=== PATIENT | male | born 1965 | race Caucasian/White ===

== ENCOUNTER 2022-01-06 11:49 | Inpatient (IN) | payer OTHER ==
[~2022-01-06] VITALS: Ht 193 cm; Wt 109.8 kg
--- NOTE | 2022-01-06 12:00 | NUR ---
BLOOD DRAWN AND SENT TO LAB
--- NOTE | 2022-01-06 12:00 | NUR ---
BIBA RA60 From [facility] Covid + x1wk/SOB/Low O2 at 85% this am. PLACED ON BED, AAOX4, UNLABORED BREATHING, ON NON-REABREATHING MASK AT 15LIT SATURATING AT 99%.
[2022-01-06 12:21] LABS: BASOPHILS % (AUTO) 0.3 % (0.0-2.0); EOSINOPHILS % (AUTO) 2.5 % (0.0-6.0); HEMATOCRIT 34 % (39-51); HEMOGLOBIN 11.3 g/dL (13.5-17.5); LYMPHOCYTES # (AUTO) 0.3 K/uL (0.8-4.8); LYMPHOCYTES % (AUTO) 5.6 % (20.0-44.0); MEAN CORPUSCULAR HGB CONC 33 g/dl (31.0-36.0); MEAN CORPUSCULAR VOLUME 94 fL (80-96); MONOCYTES # (AUTO) 0.3 K/uL (0.1-1.30); MONOCYTES % (AUTO) 5.1 % (2.0-12.0); NEUTROPHILS # (AUTO) 4.8 K/uL (1.8-8.9); NEUTROPHILS % (AUTO) 86.5 % (43.0-81.0); PLATELET COUNT (AUTO) 128 K/uL (150-450); RED BLOOD CELL COUNT(AUTO) 3.64 MIL/uL (4.5-6.0); WHITE BLOOD COUNT (AUTO) 5.5 K/uL (4.3-11.0)
--- NOTE | 2022-01-06 12:30 | NUR ---
MOVE SHEET SUBMITTED.
--- NOTE | 2022-01-06 12:45 | NUR ---
SWAB FOR COVID19 SENT TO LAB
[2022-01-06 12:49] LABS: ALANINE AMINOTRANSFERASE 23 U/L (12-78); ALBUMIN 2.2 g/dL (3.4-5.0); ALKALINE PHOSPHATASE 118 U/L (46-116); ASPARTATE AMINOTRANSFERASE 29 U/L (15-37); BILIRUBIN,DIRECT 0.5 mg/dL (0.0-0.2); BILIRUBIN,TOTAL 1.4 mg/dL (0.2-1.0); CALCIUM, SERUM 8.7 mg/dL (8.5-10.1); CARBON DIOXIDE 37 mmol/L (21-32); CHLORIDE 102 mmol/L (98-107); CREATININE 0.7 mg/dL (0.6-1.3); GLUCOSE 245 mg/dL (74-106); POTASSIUM 3.4 mmol/L (3.5-5.1); SODIUM SERUM 141 mmol/L (136-145); TOTAL PROTEIN, SERUM 7.1 g/dL (6.4-8.2); UREA NITROGEN, BLOOD 16 mg/dL (7-18)
[2022-01-06] MEDS ORDERED: OMEP40CA21 PO (12:49)
[2022-01-06] MEDS ORDERED: FERR325T23 PO (12:49)
[2022-01-06] MEDS ORDERED: HONE15GE TP (12:49)
[2022-01-06] MEDS ORDERED: POTA10TA PO (12:49)
[2022-01-06] MEDS ORDERED: ACET-868 PO (12:49)
[2022-01-06] MEDS ORDERED: AMIN30LI2 PO (12:49)
[2022-01-06] MEDS ORDERED: INSU100V7 SQ (12:49)
[2022-01-06] MEDS ORDERED: HYDR-4209 PO (12:49)
[2022-01-06] MEDS ORDERED: ACET-2605 PO (12:49)
[2022-01-06] MEDS ORDERED: DICY20TA11 PO (12:49)
[2022-01-06] MEDS ORDERED: INSU100V27 SQ (12:49)
[2022-01-06] MEDS ORDERED: HYDR-4075 PO (12:49)
[2022-01-06] MEDS ORDERED: IPRA3AMP23 IH (12:49)
[2022-01-06] MEDS ORDERED: BLOO-668 IN (12:49)
[2022-01-06] MEDS ORDERED: FURO-144 PO (12:49)
[2022-01-06] MEDS ORDERED: ASPI-869 PO (12:49)
[2022-01-06] MEDS ORDERED: MULT-594 PO (12:49)
[2022-01-06] MEDS ORDERED: DOCU-141 PO (12:49)
[2022-01-06] MEDS ORDERED: LACT10SO58 PO (12:49)
[2022-01-06] MEDS ORDERED: NITR0.4T48 SL (12:52)
[2022-01-06] MEDS ORDERED: ONDA4TAB5 PO (12:52)
[2022-01-06] MEDS ORDERED: MAGN400O6 PO (12:52)
[2022-01-06] MEDS ORDERED: FLUO20TA28 PO (12:52)
[2022-01-06] MEDS ORDERED: MIDO5TAB4 PO (12:52)
[2022-01-06] MEDS ORDERED: LORA-258 PO (12:52)
--- NOTE | 2022-01-06 13:04 | NUR ---
COVID TEST COLLECTED AND SENT
--- NOTE | 2022-01-06 13:17 | NUR ---
PANEL ON-CALL PAGED
[2022-01-06] MEDS ORDERED: ENOXAPARIN SODIUM 40 MG/0.4 ML DISP.SYRIN SQ SCH (15:30)
[2022-01-06] MEDS ORDERED: hydrALAZINE HCL 10 MG TABLET PO PRN (15:30)
[2022-01-06] MEDS ORDERED: ACETAMINOPHEN 325 MG TABLET PO PRN (15:30)
[2022-01-06] MEDS ORDERED: ONDANSETRON HCL/PF 4 MG/2 ML VIAL IVP PRN (15:30)
[2022-01-06] MEDS ORDERED: Z GUARD REMEDY 4 OZ OINT TP PRN (15:30)
[2022-01-06] MEDS ORDERED: NITROGLYCERIN 0.4 MG/TAB BOTTLE SL PRN (15:30)
[2022-01-06] MEDS ORDERED: MAG HYDROX/AL HYDROX/SIMETH 30 ML UDC PO PRN (15:30)
[2022-01-06] MEDS ORDERED: DEXTROSE 50%-WATER 50 ML DISP.SYRIN IV PRN (15:30)
[2022-01-06] MEDS ORDERED: DOCUSATE SODIUM 100 MG CAPSULE PO PRN (15:30)
[2022-01-06] MEDS ORDERED: ONDANSETRON 4 MG TAB.RAPDIS PO PRN (15:30)
[2022-01-06] MEDS ORDERED: MAGNESIUM HYDROXIDE 30 ML UDC PO PRN (15:30)
--- NOTE | 2022-01-06 15:33 | NUR ---
118 bed one - IGLESIA bed assigned
--- NOTE | 2022-01-06 15:37 | NUR ---
IGLESIA 118-2
--- NOTE | 2022-01-06 15:48 | NUR ---
REPORT GIVEN TO TEODORO CLEMENTE [id number] FOR ZAIRE
[2022-01-06] MEDS ORDERED: DICYCLOMINE HCL 10 MG CAPSULE PO PRN (16:00)
--- NOTE | 2022-01-06 18:00 | NUR ---
PAGE MAKEUP SYSTEM OPERATORPIPE BENDING MACHINE OPERATOR NOTE: RECEIVED PATIENT FROM ER VIA [facility] AT 1730. REPORT GIVEN BY ASSEMBLY OPERATOR, RAMANDEEP. PT. A/O X 2-3, KNOWS NAME, DATE, REASON FOR ADMISSION. BREATHING EVEN AND UNLABORED. ON O2 @ 8L/MIN VIA SIMPLE MASK, NO S/S OF RESPIRATORY DISTRESS. HEALTH EDUCATION TEACHER READS NSR AT 98 BPM. IV ACCESS ON L AND R AC #20G, INTACT AND PATENT, BOTH SALINE LOCKED. NO S/S OF INFILTRATION. NO COMPLAINTS OF PAIN AT THIS TIME. SKIN ISSUES NOTED. WAITING FOR WOUND CONSULT. PT. HAS HORTON CATH WITH TEA COLORED URINE DRAINING VIA GRAVITY. ALL SAFETY MEASURES IN PLACE. BED IN LOWEST POSITION AND LOCKED. SIDE RAILS UP X3, CALL LIGHT WITH IN REACH, HOB ELEVATED AT 30 DEGREES. WILL TURN AND REPOSITION Q2H. WILL CONTINUE TO MONITOR PT. FOR ANY CHANGES.
[2022-01-06] MEDS: CEFTRIAXONE 1 G in IV D5W 50 ML IV SCH (18:25)
[2022-01-06] MEDS: FERROUS SULFATE (325 MG) 325 MG/TAB TABLET PO SCH (18:26)
[2022-01-06] MEDS: ENOXAPARIN SODIUM 40 MG/0.4 ML DISP.SYRIN SQ SCH (18:27)
[2022-01-06] MEDS: INSULIN REGULAR, HUMAN 100 UNIT/ML 3 ML VIAL SQ PRN (18:29)
--- NOTE | 2022-01-06 19:00 | NUR ---
MIDDLE SCHOOL SPORTS COACH CLOSING NOTE: PT. IS EATING DINNER. VS STABLE AT THIS TIME. NO COMPLAINTS OF PAIN/DISCOMFORT. SCHEDULED MEDS GIVEN ORDERED. ENDORSED CONTINUITY OF CARE TO BIODIESEL PROCESS CONTROL TECHNICIAN RN.
[2022-01-06] MEDS: BLOOD SUGAR DIAGNOSTIC 1 EACH STRIP VI SCH ×2 (19:09→22:47)
[2022-01-06 20:00] VITALS: BP 113/70
--- NOTE | 2022-01-06 20:00 | NUR ---
ASSISTANT EXECUTIVE HOUSEKEEPER NOTE: ALERT AND ORIENTED TO NAME AND PLACE. REORIENTED TO TIME. ON 02 10 LITERS VIA MASK. SAT AT 99%. HOB ELEVATED. 45 DEGREE ANGLE. RT AND LEFT AC IV G20. RUNNING ABX ORDERED. BILATERAL LOWER EXTREMITIES WITH COVERED WITH DRESSING. BLE NOTED WITH ERYTHEMA. HORTON CATHETER DRAINING DARK TEA COLOR URINE. NOTED WITH EPISODE OF REMOVING MASK PATIENT TEACHING PROVIDED ABOUT RISK VS BENEFITS OF 02 THERAPY. TELE READING SINUS TACHY 120. REPOSITIONED. BED LOCKED, EXIT ALARM, IN LOW POSITION, CALL LIGHT IN REACH. BILATERAL SIDE RAIL UP X2.
[2022-01-06] MEDS: DEXAMETHASONE SOD PHOSPHATE 10 MG/ML VIAL IV SCH (20:01)
[2022-01-06] MEDS: LACTULOSE 10 G/15 ML UDC (PYXIS) PO SCH (20:22)
[2022-01-06] MEDS: LORAZEPAM 0.5 MG TABLET PO PRN (20:22)
[2022-01-06] MEDS: *INSULIN REGULAR(HUMULIN R)HUM 100 UNIT/ML VIAL SQ PRN (22:42)
[2022-01-07] VITALS (7 sets, daily range): BP systolic 102–132; BP diastolic 54–82
[2022-01-07] MEDS: LACTULOSE 10 G/15 ML UDC (PYXIS) PO SCH ×3 (04:51→21:05)
--- NOTE | 2022-01-07 06:58 | NUR ---
DUB ROOM ENGINEER CLOSING NOTE: ALERT AND ORIENTED TO NAME AND PLACE. REORIENTED TO TIME. ON 02 10 LITERS VIA MASK. SAT AT 97%. HOB ELEVATED. 45 DEGREE ANGLE. RT AND LEFT AC IV G20. ATIVAN GIVEN ORDERED FOR ANXIETY. BLOOD GLUCOSE MONITORED AND COVERED ORDERED WITH NO S/S OF HYPO OR HYPERGLYCEMIA. BILATERAL LOWER EXTREMITIES WITH COVERED WITH DRESSING. BLE NOTED WITH ERYTHEMA. PALPABLE PEDAL PULSES. 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 WOUND CARE ON BLE ULCERS AND SACRAL, ABDOMEN, GROIN AND SCROTAL REDNESS. KEPT CLEAN AND DRY. TURNED AND REPOSITIONED Q2. HORTON CATHETER DRAINING DARK TEA COLOR URINE. NOTED WITH EPISODE OF REMOVING MASK PATIENT TEACHING PROVIDED ABOUT RISK VS BENEFITS OF 02 THERAPY. TELE READING SINUS RHYTHM ON 85. REPOSITIONED. BED LOCKED, EXIT ALARM, IN LOW POSITION, CALL LIGHT IN REACH. BILATERAL SIDE RAIL UP X2.
[2022-01-07 07:23] LABS: BASOPHILS % (AUTO) 0.1 % (0.0-2.0); EOSINOPHILS % (AUTO) 0.1 % (0.0-6.0); HEMATOCRIT 33 % (39-51); HEMOGLOBIN 10.9 g/dL (13.5-17.5); LYMPHOCYTES # (AUTO) 0.2 K/uL (0.8-4.8); LYMPHOCYTES % (AUTO) 5.9 % (20.0-44.0); MEAN CORPUSCULAR HGB CONC 34 g/dl (31.0-36.0); MEAN CORPUSCULAR VOLUME 94 fL (80-96); MONOCYTES # (AUTO) 0.2 K/uL (0.1-1.30); MONOCYTES % (AUTO) 3.7 % (2.0-12.0); NEUTROPHILS # (AUTO) 3.7 K/uL (1.8-8.9); NEUTROPHILS % (AUTO) 90.2 % (43.0-81.0); PLATELET COUNT (AUTO) 112 K/uL (150-450); RED BLOOD CELL COUNT(AUTO) 3.49 MIL/uL (4.5-6.0); WHITE BLOOD COUNT (AUTO) 4.1 K/uL (4.3-11.0)
[2022-01-07 07:38] LABS: CALCIUM, SERUM 8.6 mg/dL (8.5-10.1); CREATININE 0.7 mg/dL (0.6-1.3); MAGNESIUM 1.9 mg/dL (1.8-2.4); PHOSPHORUS 3.3 mg/dL (2.5-4.9); POTASSIUM 3.7 mmol/L (3.5-5.1)
--- NOTE | 2022-01-07 07:42 | NUR ---
TOOLROOM MACHINIST OPEN NOTE: ALERT AND ORIENTED TO NAME AND PLACE. REORIENTED TO TIME. ON 02 10 LITERS VIA MASK. SAT AT 97%. HOB ELEVATED. 45 DEGREE ANGLE. RT AND LEFT AC IV G20. BILATERAL LOWER EXTREMITIES WITH COVERED WITH DRESSING. BLE NOTED WITH ERYTHEMA. PALPABLE PEDAL PULSES. 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 WOUND CARE ON BLE ULCERS AND SACRAL, ABDOMEN, GROIN AND SCROTAL REDNESS. KEPT CLEAN AND DRY. TURNED AND REPOSITIONED Q2. HORTON CATHETER DRAINING DARK TEA COLOR URINE. NOTED WITH EPISODE OF REMOVING MASK PATIENT TEACHING PROVIDED ABOUT RISK VS BENEFITS OF 02 THERAPY. TELE READING SINUS RHYTHM ON . REPOSITIONED. BED LOCKED, EXIT ALARM, IN LOW POSITION, CALL LIGHT IN REACH. BILATERAL SIDE RAIL UP X2
[2022-01-07] MEDS: PANTOPRAZOLE 40 MG TABLET.DR PO SCH (07:57)
[2022-01-07] MEDS: BLOOD SUGAR DIAGNOSTIC 1 EACH STRIP VI SCH ×4 (07:57→21:07)
[2022-01-07] MEDS: *INSULIN REGULAR(HUMULIN R)HUM 100 UNIT/ML VIAL SQ PRN ×4 (08:01→21:15)
[2022-01-07] MEDS: FERROUS SULFATE (325 MG) 325 MG/TAB TABLET PO SCH ×3 (08:11→17:29)
[2022-01-07] MEDS: FLUOXETINE HCL 20 MG CAPSULE PO SCH (08:11)
[2022-01-07] MEDS: DEXAMETHASONE SOD PHOSPHATE 10 MG/ML VIAL IV SCH (08:11)
[2022-01-07] MEDS ORDERED: ASPIRIN EC 325 MG TABLET.DR PO SCH (09:00)
--- NOTE | 2022-01-07 09:25 | NUR ---
PCR swab done,specimen send to lab.
[2022-01-07 11:27] LABS: ABG BASE EXCESS 8.1 mmol/L; ABG OXYGEN SATURATION 96.8 % (92.0-98.5); ABG PCO2 50.1 mmHg (35.0-45.0); ABG PH 7.443 (7.350-7.450); ABG PO2 93.9 mmHg (75.0-100.0); AaDO2 278.8 mmHg; COHb 0.3 % (0.5-1.5); MetHb 0.1 % (0.0-1.5); O2Hb 96.4 % (94.0-97.0); SITE, ABG Left Radial; VENT MODE, BG SIMPLE MASK
[2022-01-07] MEDS ORDERED: REMDESIVIR (CHARGED) 200 MG, *LOADING DOSE 1 EA in IV NS 0.9% 210 ML IV ONE (12:00)
[2022-01-07] MEDS: CEFTRIAXONE 1 G in IV D5W 50 ML IV SCH (17:21)
--- NOTE | 2022-01-07 19:23 | NUR ---
MARKETING INFORMATION COORDINATOR CLOSING NOTE ALERT AND ORIENTED TO NAME AND PLACE. REORIENTED TO TIME. ON 10 LITERS VIA MASK. SAT AT 97%. HOB ELEVATED. 45 DEGREE ANGLE. RT AND LEFT AC IV G20. HORTON CATHETER DRAINING DARK TEA COLOR URINE.. TELE READING SINUS RHYTHM ON . REPOSITIONED. BED LOCKED, EXIT ALARM, IN LOW POSITION, CALL LIGHT IN REACH. BILATERAL SIDE RAIL UP X2.
[2022-01-07] MEDS: ENOXAPARIN SODIUM 40 MG/0.4 ML DISP.SYRIN SQ SCH (21:07)
[2022-01-08] VITALS: BP 90/60
--- NOTE | 2022-01-08 00:49 | NUR ---
RN NOTE INFORMED CHRIS MACK COMPUTER TRAINING SPECIALIST THAT PATIENT IS HAVING HEMATURIA, DARK RED. RECEIVED ORDER TO HOLD LOVENOX AM DOSE TONIGHTS DOSE WAS ALREADY GIVEN. AND COLLECT A UA. ORDERS READ BACK NOTED AND CARRIED OUT.
[2022-01-08 04:00] VITALS: BP 95/64
[2022-01-08] MEDS: LACTULOSE 10 G/15 ML UDC (PYXIS) PO SCH ×3 (06:20→21:42)
[2022-01-08 06:41] LABS: BASOPHILS % (AUTO) 0.2 % (0.0-2.0); EOSINOPHILS % (AUTO) 1.6 % (0.0-6.0); HEMATOCRIT 34 % (39-51); HEMOGLOBIN 11.2 g/dL (13.5-17.5); LYMPHOCYTES # (AUTO) 0.5 K/uL (0.8-4.8); LYMPHOCYTES % (AUTO) 7.4 % (20.0-44.0); MEAN CORPUSCULAR HGB CONC 33 g/dl (31.0-36.0); MEAN CORPUSCULAR VOLUME 94 fL (80-96); MONOCYTES # (AUTO) 0.4 K/uL (0.1-1.30); MONOCYTES % (AUTO) 7.1 % (2.0-12.0); NEUTROPHILS # (AUTO) 5.2 K/uL (1.8-8.9); NEUTROPHILS % (AUTO) 83.7 % (43.0-81.0); PLATELET COUNT (AUTO) 131 K/uL (150-450); RED BLOOD CELL COUNT(AUTO) 3.57 MIL/uL (4.5-6.0); WHITE BLOOD COUNT (AUTO) 6.2 K/uL (4.3-11.0)
[2022-01-08 07:27] LABS: ALBUMIN 2.1 g/dL (3.4-5.0); BILIRUBIN,DIRECT 0.4 mg/dL (0.0-0.2); BILIRUBIN,TOTAL 0.9 mg/dL (0.2-1.0); CALCIUM, SERUM 8.8 mg/dL (8.5-10.1); CREATININE 0.7 mg/dL (0.6-1.3); POTASSIUM 3.5 mmol/L (3.5-5.1)
--- NOTE | 2022-01-08 07:40 | NUR ---
RN CLOSING NOTE PATIENT RESTING IN BED. A/OX2. 10L SIMPLE MASK. NO S/S RESP DISTRESS. NO C/O PAIN. SINUS RHYTHM ON THE MONITOR. HORTON CATHETER DRAINING HEMATURIA. RECEIVED ORDER TO HOLD LOVENOX IN A, ENDORSED TO NEXT SHIFT. ORDER TO COLLECT UA. ON ABX FOR COVID TX. ON CONTACT ISOLATION PENDING PCR RESULT
[2022-01-08 08:00] VITALS: BP 116/67
--- NOTE | 2022-01-08 09:26 | NUR ---
WOUND CARE CONSULT: REVIEWED CHART, NURSING DOCUMENTATION AND PHOTOS WHICH INDICATE MULTIPLE WOUNDS AND RASHES, PRESENT ON ADMISSION INCLUDING LOWER EXTREMITY WOUNDS, GROIN/PERINEAL RASH AND SACRAL DEEP TISSUE INJURY. DR KIRKLAND AND DR MEIER CALLED FOR DPM AND SURGICAL CONSULTS. BED EXTENSION REQUESTED FROM APARTMENT COORDINATOR TO ACCOMODATE PTS HEIGHT. PT IS ON MARJAN ISOFLEX LOW AIRLOSS BED. DISCUSSED SKIN PROTECTION WITH NURSING STAFF. MD IN AGREEMENT WITH PLAN OF CARE.
[2022-01-08] MEDS: FLUOXETINE HCL 20 MG CAPSULE PO SCH (09:56)
[2022-01-08] MEDS: DEXAMETHASONE SOD PHOSPHATE 10 MG/ML VIAL IV SCH (09:56)
[2022-01-08] MEDS: FERROUS SULFATE (325 MG) 325 MG/TAB TABLET PO SCH ×3 (09:56→16:41)
[2022-01-08] MEDS: PANTOPRAZOLE 40 MG TABLET.DR PO SCH (09:56)
[2022-01-08] MEDS: BLOOD SUGAR DIAGNOSTIC 1 EACH STRIP VI SCH ×4 (10:29→21:51)
[2022-01-08] MEDS: *INSULIN REGULAR(HUMULIN R)HUM 100 UNIT/ML VIAL SQ PRN ×2 (10:31→21:51)
[2022-01-08 12:00] VITALS: BP 113/70
[2022-01-08] MEDS: REMDESIVIR (CHARGED) 100 MG in IV NS 0.9% 100 ML IV SCH (12:35)
[2022-01-08] MEDS: INSULIN REGULAR, HUMAN 100 UNIT/ML 3 ML VIAL SQ PRN ×2 (13:45→17:09)
--- NOTE | 2022-01-08 15:04 | NUR ---
RECEIVED A CALL FROM THE LAB. PATIENT IS DETECTED FOR COVID. POSITIVE PCR TEST.
[2022-01-08 16:00] VITALS: BP 110/69
[2022-01-08] MEDS: CEFTRIAXONE 1 G in IV D5W 50 ML IV SCH (16:41)
--- NOTE | 2022-01-08 18:16 | NUR ---
END OF SHIFT SUMMARY A/O X3. ABLE TO MAKE NEEDS KNOWN. ON 02 SIMPLE MASK AT 10 LPM. IV ACCESS ON LFA AND RFA #20 G, BOTH INTACT AND PATENT. HORTON CATHETER IN PLACE DRAINING, DARK TEA COLORED URINE, 450 CC OUTPUT. TOLERATED ROCEPHIN AND REMDESIVIR WELL. SAFETY MEASURES MAINTAINED. BED IN LOWEST POSITION, BRAKES LOCKED. SIDE RAILS UP X2. CALL LIGHT WITHIN REACH. WILL ENDORSE CONTINUITY OF CARE TO ONCOMING SHIFT.
--- NOTE | 2022-01-08 19:30 | NUR ---
RN NOTE Received patient in bed, AO x 2-3 with periods of confusion, in no acute distress, short of breath, saturation at 96% on 10L via simple mask, SR on the monitor, HR is 98. IV line at LFA 20G, and RFA 20g patent and flushing well, no s/s of infection or infiltration, saline locked. Wyatt catheter draining to a tea colored output. Wound dressing at BLE dry and intact. Safety measures implemented, bed is locked and at lowest position, side rails up x 3, bed alarm on, call light within reach of patient. Will cont to monitor and reassess.
[2022-01-08 20:00] VITALS: BP 108/69
--- NOTE | 2022-01-08 20:18 | NUR ---
RN NOTE TELEPHONE CALL FROM LAB, STATED PT POSITIVE FOR MRSA AT [facility]. DR MACK NOTIFIED, ORDER RECEIVED FOR BACTROBAN 2% OINTMENT AT [facility] BID FOR 7 DAYS. PHARMACY MADE AWARE.
[2022-01-08] MEDS: MUPIROCIN OINT 2% 22 GM TUBE NS SCH (21:41)
[2022-01-08] MEDS: ENOXAPARIN SODIUM 40 MG/0.4 ML DISP.SYRIN SQ SCH (21:45)
[2022-01-08] MEDS: CLOTRIMAZOLE/BETAMETASONE DIPROPIONATE 15 GM TUBE TP SCH (23:00)
[2022-01-08] MEDS: LORAZEPAM 0.5 MG TABLET PO PRN (23:25)
[2022-01-09] VITALS: BP 101/78
[2022-01-09 04:00] VITALS: BP 110/62
[2022-01-09] MEDS: LACTULOSE 10 G/15 ML UDC (PYXIS) PO SCH ×3 (06:05→21:26)
[2022-01-09 06:35] LABS: BASOPHILS % (AUTO) 0.1 % (0.0-2.0); EOSINOPHILS % (AUTO) 1.1 % (0.0-6.0); HEMATOCRIT 33 % (39-51); HEMOGLOBIN 11.1 g/dL (13.5-17.5); LYMPHOCYTES # (AUTO) 0.4 K/uL (0.8-4.8); LYMPHOCYTES % (AUTO) 7.6 % (20.0-44.0); MEAN CORPUSCULAR HGB CONC 34 g/dl (31.0-36.0); MEAN CORPUSCULAR VOLUME 94 fL (80-96); MONOCYTES # (AUTO) 0.3 K/uL (0.1-1.30); NEUTROPHILS % (AUTO) 84.2 % (43.0-81.0); PLATELET COUNT (AUTO) 109 K/uL (150-450); RED BLOOD CELL COUNT(AUTO) 3.53 MIL/uL (4.5-6.0); WHITE BLOOD COUNT (AUTO) 4.8 K/uL (4.3-11.0)
[2022-01-09 07:04] LABS: ALBUMIN 2.1 g/dL (3.4-5.0); BILIRUBIN,DIRECT 0.4 mg/dL (0.0-0.2); BILIRUBIN,TOTAL 0.8 mg/dL (0.2-1.0); CALCIUM, SERUM 8.7 mg/dL (8.5-10.1); CREATININE 0.8 mg/dL (0.6-1.3); POTASSIUM 3.7 mmol/L (3.5-5.1); TOTAL PROTEIN, SERUM 6.7 g/dL (6.4-8.2)
--- NOTE | 2022-01-09 07:30 | NUR ---
RN OPENING NOTE: PATIENT ALERT AND ORIENTED TO NAMEMAPLACE. REORIENTED TO TIME. ON 02 10 LITERS VIA MASK. SAT AT 97%. HOB ELEVATED. 45 DEGREE ANGLE. RT AND LEFT AC IV G20. BILATERAL LOWER EXTREMITIES WITH COVERED WITH DRESSING. BLE NOTED WITH ERYTHEMA. PALPABLE PEDAL PULSES. 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 WOUND CARE ON BLE ULCERS AND SACRAL, ABDOMEN, GROIN AND SCROTAL REDNESS. KEPT CLEAN AND DRY. TURNED AND REPOSITIONED Q2. HORTON CATHETER DRAINING DARK TEA COLOR URINE. NOTED WITH EPISODE OF REMOVING MASK PATIENT TEACHING PROVIDED ABOUT RISK VS BENEFITS OF 02 THERAPY. TELE READING SINUS RHYTHM ON . REPOSITIONED. BED LOCKED, EXIT ALARM, IN LOW POSITION, CALL LIGHT IN REACH. BILATERAL SIDE RAIL UP X2
--- NOTE | 2022-01-09 07:30 | NUR ---
RN OPENING NOTE: PATIENT ALERT AND ORIENTED TO NAME AND APLACE. REORIENTED TO TIME. ON 02 10 LITERS VIA MASK. SAT AT 95%. HOB ELEVATED. 45 DEGREE ANGLE. RT AND LEFT AC IV G20. BILATERAL LOWER EXTREMITIES WITH COVERED WITH DRESSING. BLE NOTED WITH ERYTHEMA. PALPABLE PEDAL PULSES. 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 NOTED WITH EPISODE OF REMOVING MASK PATIENT TEACHING PROVIDED ABOUT RISK VS BENEFITS OF 02 THERAPY. TELE READING SINUS RHYTHM ON 82. REPOSITIONED. BED LOCKED, EXIT ALARM, IN LOW POSITION, CALL LIGHT IN REACH. BILATERAL SIDE RAIL UP X2. WILL MONITOR THE PATIENT DURING THE SHIFT.
[2022-01-09 08:00] VITALS: BP 114/73
[2022-01-09] MEDS: BLOOD SUGAR DIAGNOSTIC 1 EACH STRIP VI SCH ×4 (08:15→21:25)
[2022-01-09] MEDS: PANTOPRAZOLE 40 MG TABLET.DR PO SCH (08:16)
[2022-01-09] MEDS: DEXAMETHASONE SOD PHOSPHATE 10 MG/ML VIAL IV SCH (08:33)
[2022-01-09] MEDS: FLUOXETINE HCL 20 MG CAPSULE PO SCH (08:33)
[2022-01-09] MEDS: FERROUS SULFATE (325 MG) 325 MG/TAB TABLET PO SCH ×3 (08:33→17:19)
[2022-01-09] MEDS: PROSOURCE / PROSTAT (PYXIS) 30 ML UDC GT SCH (08:33)
[2022-01-09] MEDS: MUPIROCIN OINT 2% 22 GM TUBE NS SCH ×2 (08:33→21:26)
[2022-01-09] MEDS: THERAHONEY GEL 1.5 OZ TUBE TP SCH (08:34)
[2022-01-09] MEDS: CLOTRIMAZOLE/BETAMETASONE DIPROPIONATE 15 GM TUBE TP SCH ×2 (08:34→17:20)
[2022-01-09] MEDS: *INSULIN REGULAR(HUMULIN R)HUM 100 UNIT/ML VIAL SQ PRN ×4 (08:52→21:27)
[2022-01-09 12:00] VITALS: BP 116/73
[2022-01-09] MEDS: REMDESIVIR (CHARGED) 100 MG in IV NS 0.9% 100 ML IV SCH (13:22)
[2022-01-09 16:00] VITALS: BP 105/65
[2022-01-09] MEDS: CEFTRIAXONE 1 G in IV D5W 50 ML IV SCH (17:20)
--- NOTE | 2022-01-09 18:50 | NUR ---
RN CLOSING NOTE PATIENT RESTING IN BED. A/OX2-3. 10L SIMPLE MASK. NO S/S RESP DISTRESS. NO COMPLAINS OF PAIN. SINUS RHYTHM ON THE MONITOR. HORTON CATHETER DRAINING DARK ОЛЬГА URINE. HOLD LOVENOX SINCE LAST SHIFT DUE TO HEMATURIA, ENDORSED TO NEXT SHIFT. ON CONTACT ISOLATION PCR RESULT POSITIVE. MERSA @[facility]. BED AT LOWEST POSITION, BED ALARM ON, CALL LIGHT WITHIN REACH. ALL SAFETY MEASURES IN PLACE. WILL ENDORSE THE PATIENT TO THE WASTE MANAGEMENT SPECIALIST NURSE TO [facility].
--- NOTE | 2022-01-09 19:30 | NUR ---
RN NOTE Received patient in bed, AO x 2-3 with periods of confusion, in no acute distress, short of breath, saturation at 99% on 10L via simple mask, SR on the monitor, HR is 95. IV line at LFA 20G, and RFA 20g patent and flushing well, no s/s of infection or infiltration, saline locked. Wyatt catheter draining to a tea colored output. Wound dressing at BLE dry and intact. Safety measures implemented, bed is locked and at lowest position, side rails up x 3, bed alarm on, call light within reach of patient. Will cont to monitor and reassess.
[2022-01-09 20:00] VITALS: BP 106/70
[2022-01-09] MEDS: ENOXAPARIN SODIUM 40 MG/0.4 ML DISP.SYRIN SQ SCH (21:38)
[2022-01-10] VITALS: BP 110/74
[2022-01-10 04:00] VITALS: BP 111/72
[2022-01-10] MEDS: LACTULOSE 10 G/15 ML UDC (PYXIS) PO SCH ×3 (04:27→21:45)
[2022-01-10 07:08] LABS: BASOPHILS % (AUTO) 0.1 % (0.0-2.0); EOSINOPHILS % (AUTO) 2.4 % (0.0-6.0); HEMATOCRIT 32 % (39-51); HEMOGLOBIN 10.8 g/dL (13.5-17.5); LYMPHOCYTES # (AUTO) 0.4 K/uL (0.8-4.8); LYMPHOCYTES % (AUTO) 9.7 % (20.0-44.0); MEAN CORPUSCULAR HGB CONC 34 g/dl (31.0-36.0); MEAN CORPUSCULAR VOLUME 93 fL (80-96); MONOCYTES # (AUTO) 0.4 K/uL (0.1-1.30); MONOCYTES % (AUTO) 8.3 % (2.0-12.0); NEUTROPHILS # (AUTO) 3.6 K/uL (1.8-8.9); NEUTROPHILS % (AUTO) 79.5 % (43.0-81.0); PLATELET COUNT (AUTO) 105 K/uL (150-450); WHITE BLOOD COUNT (AUTO) 4.5 K/uL (4.3-11.0)
[2022-01-10 07:32] LABS: BILIRUBIN,DIRECT 0.3 mg/dL (0.0-0.2); BILIRUBIN,TOTAL 0.8 mg/dL (0.2-1.0); CALCIUM, SERUM 8.8 mg/dL (8.5-10.1); CREATININE 0.7 mg/dL (0.6-1.3); POTASSIUM 3.5 mmol/L (3.5-5.1); TOTAL PROTEIN, SERUM 6.6 g/dL (6.4-8.2)
--- NOTE | 2022-01-10 07:32 | NUR ---
RN NOTE Received patient in bed, AO x 2-3 with periods of confusion, in no acute distress, short of breath, saturation at 99% on 10L via simple mask, SR on the monitor. IV line at Lac 20G, and RFA 20g patent and flushing well, no s/s of infection or infiltration, saline locked. Wyatt catheter draining to a tea colored output. Wound dressing at BLE dry and intact. Safety measures implemented, bed is locked and at lowest position, side rails up x 3, bed alarm on, call light within reach of patient. Will continue plan of care and anticipate needs.
[2022-01-10 08:00] VITALS: BP 100/63
[2022-01-10] MEDS: PANTOPRAZOLE 40 MG TABLET.DR PO SCH (08:23)
[2022-01-10] MEDS: BLOOD SUGAR DIAGNOSTIC 1 EACH STRIP VI SCH ×4 (08:23→21:57)
[2022-01-10] MEDS: MUPIROCIN OINT 2% 22 GM TUBE NS SCH ×2 (09:05→21:45)
[2022-01-10] MEDS: CLOTRIMAZOLE/BETAMETASONE DIPROPIONATE 15 GM TUBE TP SCH ×2 (09:05→16:24)
[2022-01-10] MEDS: FERROUS SULFATE (325 MG) 325 MG/TAB TABLET PO SCH ×3 (09:05→16:27)
[2022-01-10] MEDS: FLUOXETINE HCL 20 MG CAPSULE PO SCH (09:06)
[2022-01-10] MEDS: THERAHONEY GEL 1.5 OZ TUBE TP SCH (09:06)
[2022-01-10] MEDS: DEXAMETHASONE SOD PHOSPHATE 10 MG/ML VIAL IV SCH (09:06)
[2022-01-10] MEDS: PROSOURCE / PROSTAT (PYXIS) 30 ML UDC GT SCH (09:06)
[2022-01-10 12:00] VITALS: BP 109/70
[2022-01-10] MEDS: REMDESIVIR (CHARGED) 100 MG in IV NS 0.9% 100 ML IV SCH (12:34)
[2022-01-10] MEDS: *INSULIN REGULAR(HUMULIN R)HUM 100 UNIT/ML VIAL SQ PRN ×3 (12:37→21:57)
[2022-01-10 16:00] VITALS: BP 92/68
[2022-01-10] MEDS: CEFTRIAXONE 1 G in IV D5W 50 ML IV SCH (16:27)
--- NOTE | 2022-01-10 18:55 | NUR ---
RN CLOSING NOTES PATIENT REMAINS IN STABLE CONDITION. SAFETY MEASURES IMPLEMENTED. HAND OFF REPORT GIVEN TO NIGHTSHIFT RN FOR CONTINUATION OF CARE.
--- NOTE | 2022-01-10 19:20 | NUR ---
RN NOTE Received patient in bed, AO x 3 with periods of confusion, in no acute distress, short of breath, saturation at 97% on 10L via simple mask, SR on the monitor, HR is 82. IV line at LFA 20G, and RFA 20g patent and flushing well, no s/s of infection or infiltration, saline locked. Wyatt catheter draining to a clear, yellow output. Wound dressing at BLE dry and intact. Safety measures implemented, bed is locked and at lowest position, side rails up x 3, bed alarm on, call light within reach of patient. Will cont to monitor and reassess.
[2022-01-10 20:00] VITALS: BP 112/67
[2022-01-10] MEDS: ENOXAPARIN SODIUM 40 MG/0.4 ML DISP.SYRIN SQ SCH (21:54)
[2022-01-11] VITALS: BP 110/70
[2022-01-11 04:00] VITALS: BP 115/75
[2022-01-11] MEDS: LACTULOSE 10 G/15 ML UDC (PYXIS) PO SCH ×3 (05:15→21:46)
--- NOTE | 2022-01-11 07:10 | NUR ---
RN OPENING NOTE RECIEVED PATIENT IN BED ON NON REBREATHER MASK AT 10L PER MINUTE, OXYGEN SATURATION IN THE HIGH 90S. A/O TIMES 3. SR ON MONITOR HR is IN THE 80S. IV LINE ON LFA 20G, AND RFA 20g PATENT AND FLUSHING WITH NO RESISTANCE. HORTON CATHETER DRAINING YELLOW CLEAR URINE. WOUND DRESSINGS INTACT. SAFETY MEASURES IMPLEMENTED, BED IN LOWEST LOCKED POSITION, CALL LIGHT WITHIN REACH, CALL LIGHT WITHIN REACH. WILL CONTINUE PLAN OF CARE AND ANTICIPATE NEEDS.
[2022-01-11 07:18] LABS: BASOPHILS % (AUTO) 0.1 % (0.0-2.0); EOSINOPHILS % (AUTO) 2.8 % (0.0-6.0); HEMATOCRIT 34 % (39-51); HEMOGLOBIN 11.4 g/dL (13.5-17.5); LYMPHOCYTES # (AUTO) 0.4 K/uL (0.8-4.8); LYMPHOCYTES % (AUTO) 8.4 % (20.0-44.0); MEAN CORPUSCULAR HGB CONC 33 g/dl (31.0-36.0); MEAN CORPUSCULAR VOLUME 94 fL (80-96); MONOCYTES # (AUTO) 0.3 K/uL (0.1-1.30); MONOCYTES % (AUTO) 6.9 % (2.0-12.0); NEUTROPHILS # (AUTO) 4.1 K/uL (1.8-8.9); NEUTROPHILS % (AUTO) 81.8 % (43.0-81.0); PLATELET COUNT (AUTO) 103 K/uL (150-450); RED BLOOD CELL COUNT(AUTO) 3.67 MIL/uL (4.5-6.0)
[2022-01-11 07:28] LABS: ALBUMIN 2.2 g/dL (3.4-5.0); BILIRUBIN,DIRECT 0.4 mg/dL (0.0-0.2); BILIRUBIN,TOTAL 0.9 mg/dL (0.2-1.0); CALCIUM, SERUM 8.8 mg/dL (8.5-10.1); CREATININE 0.8 mg/dL (0.6-1.3); POTASSIUM 3.7 mmol/L (3.5-5.1); TOTAL PROTEIN, SERUM 6.9 g/dL (6.4-8.2)
[2022-01-11] MEDS: BLOOD SUGAR DIAGNOSTIC 1 EACH STRIP VI SCH ×4 (07:58→23:34)
[2022-01-11] MEDS: PANTOPRAZOLE 40 MG TABLET.DR PO SCH (07:58)
[2022-01-11 08:00] VITALS: BP 115/77
[2022-01-11] MEDS: CLOTRIMAZOLE/BETAMETASONE DIPROPIONATE 15 GM TUBE TP SCH ×2 (08:56→16:24)
[2022-01-11] MEDS: MUPIROCIN OINT 2% 22 GM TUBE NS SCH ×2 (08:56→21:45)
[2022-01-11] MEDS: THERAHONEY GEL 1.5 OZ TUBE TP SCH (08:57)
[2022-01-11 08:59] LABS: ABG BASE EXCESS 8.8 mmol/L; ABG OXYGEN SATURATION 93.6 % (92.0-98.5); ABG PCO2 49.3 mmHg (35.0-45.0); ABG PH 7.457 (7.350-7.450); ABG PO2 71.5 mmHg (75.0-100.0); AaDO2 229.5 mmHg; COHb 0.4 % (0.5-1.5); MetHb 0.2 % (0.0-1.5); SITE, ABG Right Radial; VENT MODE, BG 12 SIMPLE MASK
[2022-01-11] MEDS: *INSULIN REGULAR(HUMULIN R)HUM 100 UNIT/ML VIAL SQ PRN ×4 (09:01→23:38)
[2022-01-11] MEDS: DEXAMETHASONE SOD PHOSPHATE 10 MG/ML VIAL IV SCH (09:02)
[2022-01-11] MEDS: PROSOURCE / PROSTAT (PYXIS) 30 ML UDC GT SCH (09:02)
[2022-01-11] MEDS: FERROUS SULFATE (325 MG) 325 MG/TAB TABLET PO SCH ×3 (09:02→17:02)
[2022-01-11] MEDS: FLUOXETINE HCL 20 MG CAPSULE PO SCH (09:02)
[2022-01-11 12:00] VITALS: BP 109/73
[2022-01-11] MEDS: REMDESIVIR (CHARGED) 100 MG in IV NS 0.9% 100 ML IV SCH (12:19)
[2022-01-11 16:00] VITALS: BP 110/71
[2022-01-11] MEDS: CEFTRIAXONE 1 G in IV D5W 50 ML IV SCH (17:02)
--- NOTE | 2022-01-11 19:20 | NUR ---
RN OPENING NOTES RECEIVED PATIENT ON BED, A/0 X 3-4. AWAKE, VERBALLY RESPONSIVE. ON SIMPLE MASK @ 10 LPM AIR SATING AT 95%. WITH RIGHT FOREARM #22 AND LAC #20 PERIPHERAL LINE, PATENT, INTACT, FLUSHED WITH NS. NO S/S OF INFILTRATION NOTED. HORTON CATHETER PATENT INTACT DRAINING CLEAR YELLOW URINE VIA GRAVITY. REPOSITION EVERY 2 HRS. ALL SAFETY PRECAUTION PROVIDED, BED IN LOWEST POSITION, LOCKED. BED ALARM ARMED. CALL LIGHT WITH IN REACH. CONTINUE TO MONITOR.
--- NOTE | 2022-01-11 19:38 | NUR ---
RT Received patient on 12 LPM simple mask. SPO2 95%.
[2022-01-11 20:00] VITALS: BP 117/74
[2022-01-11] MEDS: ENOXAPARIN SODIUM 40 MG/0.4 ML DISP.SYRIN SQ SCH (21:46)
[2022-01-12] VITALS: BP 101/76
[2022-01-12 04:00] VITALS: BP 106/68
[2022-01-12] MEDS: LACTULOSE 10 G/15 ML UDC (PYXIS) PO SCH ×3 (04:30→21:39)
[2022-01-12 07:05] LABS: BASOPHILS % (AUTO) 0.2 % (0.0-2.0); EOSINOPHILS % (AUTO) 1.4 % (0.0-6.0); HEMATOCRIT 34 % (39-51); HEMOGLOBIN 11.3 g/dL (13.5-17.5); LYMPHOCYTES # (AUTO) 0.4 K/uL (0.8-4.8); LYMPHOCYTES % (AUTO) 6.3 % (20.0-44.0); MEAN CORPUSCULAR HGB CONC 33 g/dl (31.0-36.0); MEAN CORPUSCULAR VOLUME 95 fL (80-96); MONOCYTES # (AUTO) 0.4 K/uL (0.1-1.30); NEUTROPHILS # (AUTO) 4.9 K/uL (1.8-8.9); NEUTROPHILS % (AUTO) 85.1 % (43.0-81.0); PLATELET COUNT (AUTO) 97 K/uL (150-450); RED BLOOD CELL COUNT(AUTO) 3.59 MIL/uL (4.5-6.0); WHITE BLOOD COUNT (AUTO) 5.8 K/uL (4.3-11.0)
[2022-01-12 07:18] LABS: CALCIUM, SERUM 8.7 mg/dL (8.5-10.1); CREATININE 0.7 mg/dL (0.6-1.3); POTASSIUM 4.3 mmol/L (3.5-5.1)
[2022-01-12 08:00] VITALS: BP 115/84
[2022-01-12] MEDS: PANTOPRAZOLE 40 MG TABLET.DR PO SCH (08:27)
[2022-01-12] MEDS: BLOOD SUGAR DIAGNOSTIC 1 EACH STRIP VI SCH ×4 (08:28→21:51)
[2022-01-12] MEDS: MUPIROCIN OINT 2% 22 GM TUBE NS SCH ×2 (09:25→21:39)
[2022-01-12] MEDS: THERAHONEY GEL 1.5 OZ TUBE TP SCH (09:26)
[2022-01-12] MEDS: DEXAMETHASONE SOD PHOSPHATE 10 MG/ML VIAL IV SCH (09:36)
[2022-01-12] MEDS: FERROUS SULFATE (325 MG) 325 MG/TAB TABLET PO SCH ×3 (09:36→16:39)
[2022-01-12] MEDS: FLUOXETINE HCL 20 MG CAPSULE PO SCH (09:36)
[2022-01-12] MEDS: CLOTRIMAZOLE/BETAMETASONE DIPROPIONATE 15 GM TUBE TP SCH ×2 (09:37→16:40)
[2022-01-12] MEDS: PROSOURCE / PROSTAT (PYXIS) 30 ML UDC GT SCH (09:38)
[2022-01-12] MEDS: *INSULIN REGULAR(HUMULIN R)HUM 100 UNIT/ML VIAL SQ PRN ×4 (10:07→21:53)
[2022-01-12 12:00] VITALS: BP 96/70
[2022-01-12 16:00] VITALS: BP 114/66
--- NOTE | 2022-01-12 19:00 | NUR ---
RN CLOSING NOTE PATIENT RESTING IN BED. A/OX 3-4. 10L SIMPLE MASK. NO S/S RESP DISTRESS. NO COMPLAINS OF PAIN. SINUS RHYTHM ON THE MONITOR. HORTON CATHETER DRAINING DARK ОЛЬГА URINE. HOLD LOVENOX. ON CONTACT ISOLATION PCR RESULT POSITIVE. MERSA @[facility]. BED AT LOWEST POSITION, BED ALARM ON, CALL LIGHT WITHIN REACH. ALL SAFETY MEASURES IN PLACE. WILL ENDORSE THE PATIENT TO THE MEAT CUTTER NURSE TO [facility].
--- NOTE | 2022-01-12 19:35 | NUR ---
RN OPENING NOTES: RECEIVED PATIENT IN BED, AWAKE, A/OX 3-4 AND VERBALLY RESPONSIVE. ON O2 AT 12L SIMPLE MASK AND PT TOLERATED WELL. BREATHING EVEN AND UNLABORED. IV ACCESS ON RFA#20G AND LAC #20G INTACT AND PATENT. NO S/S OF INFILTRATIONS. NO C/O PAIN OR DISCOMFORT. NO ACUTE DISTRESS. HORTON CATHETER IN PLACE. DRAINING BY GRAVITY. ON ISOLATION FOR COVID POSITIVE AND MRSA @[facility]. ALL SAFETY MEASURES IN PLACE. BED IN LOWEST POSITION AND LOCKED. SIDE RAILS UP X3, BED ALARM ON. PLACE CALL LIGHT WITH IN REACH. WILL CONTINUE TO MONITOR.
[2022-01-12 20:00] VITALS: BP 109/68
[2022-01-12] MEDS: ENOXAPARIN SODIUM 40 MG/0.4 ML DISP.SYRIN SQ SCH (21:42)
--- NOTE | 2022-01-12 22:00 | NUR ---
RN NOTES: PT'S BLOOD SUGAR 253. 6 UNITS OF REGULAR INSULIN GIVEN. NO S/S OF HYPER/HYPOGLYCEMIA. WILL CONTINUE TO MONITOR
[2022-01-13] VITALS: BP 103/71
[2022-01-13 04:00] VITALS: BP 107/70
[2022-01-13] MEDS: LACTULOSE 10 G/15 ML UDC (PYXIS) PO SCH ×3 (05:35→20:59)
--- NOTE | 2022-01-13 06:45 | NUR ---
RN CLOSING NOTES: PATIENT IN BED, AWAKE, A/OX 3-4 AND VERBALLY RESPONSIVE. ON O2 AT 12L SIMPLE MASK AND PT TOLERATED WELL. O2 SAT 97%. BREATHING EVEN AND UNLABORED. IV ACCESS ON RFA#20G AND LAC #20G INTACT AND PATENT. NO S/S OF INFILTRATIONS. NO C/O PAIN OR DISCOMFORT. NO ACUTE DISTRESS. HORTON CATHETER IN PLACE. DRAINING BY GRAVITY. ON ISOLATION FOR COVID POSITIVE AND MRSA @[facility]. ALL DUE MEDS GIVEN ORDERED. ALL SAFETY MEASURES IN PLACE. BED IN LOWEST POSITION AND LOCKED. SIDE RAILS UP X3, BED ALARM ON. PLACE CALL LIGHT WITH IN REACH. WILL ENDORSE TO MORNING SHIFT NURSE.
--- NOTE | 2022-01-13 07:30 | NUR ---
RN OPENING NOTE PATIENT IS IN BED, ON TEE'S POSITION, ALERT AND ORIENTED X 3. WITH OXYGEN VIA FACE MASK AT 12L/MIN. SINUS RHYTHM ON CUTTING TOOL SHARPENER. DENIES PAIN , BREATHING UNLABORED AND NOT IN ANY FORM OF DISTRESS. WITH RIGHT FOREARM IV SALINE LOCK AND LEFT ANTECUBITAL SALINE LOCK INTACT AND PATENT. HORTON CATHETER INTACT AND ATTACHED TO URINE BAG DRAINING TO A CLEAR YELLOW URINE. ALL HOSPITAL SAFETY PRECAUTIONS IN PLACE. BED IS LOCKED IN LOWEST POSITION, 3 SIDE RAILS UP, CALL LIGHT WITHIN REACH. WILL CONTINUE TO MONITOR THROUGHOUT SHIFT.
[2022-01-13] MEDS: BLOOD SUGAR DIAGNOSTIC 1 EACH STRIP VI SCH ×4 (07:55→21:29)
[2022-01-13 08:00] VITALS: BP 104/60
[2022-01-13] MEDS: FERROUS SULFATE (325 MG) 325 MG/TAB TABLET PO SCH ×3 (08:50→17:08)
[2022-01-13] MEDS: FLUOXETINE HCL 20 MG CAPSULE PO SCH (08:50)
[2022-01-13] MEDS: DEXAMETHASONE SOD PHOSPHATE 10 MG/ML VIAL IV SCH (08:51)
[2022-01-13] MEDS: PANTOPRAZOLE 40 MG TABLET.DR PO SCH (08:51)
[2022-01-13] MEDS: PROSOURCE / PROSTAT (PYXIS) 30 ML UDC GT SCH (08:51)
[2022-01-13] MEDS: MUPIROCIN OINT 2% 22 GM TUBE NS SCH ×2 (08:52→20:59)
[2022-01-13] MEDS: THERAHONEY GEL 1.5 OZ TUBE TP SCH (08:53)
[2022-01-13] MEDS: CLOTRIMAZOLE/BETAMETASONE DIPROPIONATE 15 GM TUBE TP SCH ×2 (08:53→17:09)
[2022-01-13] MEDS: INSULIN REGULAR, HUMAN 100 UNIT/ML 3 ML VIAL SQ PRN (09:00)
[2022-01-13 12:00] VITALS: BP 128/69
[2022-01-13] MEDS: *INSULIN REGULAR(HUMULIN R)HUM 100 UNIT/ML VIAL SQ PRN ×3 (12:19→21:34)
[2022-01-13] MEDS: HYDROCODONE/APAP 5/325MG TABLET PO PRN (13:26)
--- NOTE | 2022-01-13 16:00 | NUR ---
RN NOTE PATIENT IS RESTING COMFORTABLY IN BED AND REMAINS STABLE OF THIS TIME. WOUND CARE DONE.
[2022-01-13 16:09] VITALS: BP 102/68
--- NOTE | 2022-01-13 19:00 | NUR ---
RN CLOSING NOTE PATIENT REMAINED STABLE THROUGHOUT SHIFT. TOLERATES OXYGEN VIA FACEMASK AT 12L/MIN, BREATHING UNLABORED AND NOT IN ANY FORM OF DISTRESS. IV LINE INTACT AND PATENT. HORTON CATHETER REMAINS INTACT AND DRAINING TO A CLEAR YELLOW COLORED URINE. ALL HOSPITAL SAFETY PRECAUTIONS KEPT IN PLACE. WILL ENDORSE TO SOUND DESIGNER NURSE.
--- NOTE | 2022-01-13 19:35 | NUR ---
RN OPENING NOTES: RECEIVED PATIENT IN BED, AWAKE, A/OX 3-4 WITH EPISODE OF CONFUSION AND VERBALLY RESPONSIVE. ON O2 AT 12L SIMPLE MASK AND PT TOLERATED WELL. BREATHING EVEN AND UNLABORED. IV ACCESS ON RFA#20G AND LAC #20G INTACT AND PATENT. NO S/S OF INFILTRATIONS. NO C/O PAIN OR DISCOMFORT. NO ACUTE DISTRESS. HORTON CATHETER IN PLACE. DRAINING BY GRAVITY. ON ISOLATION FOR COVID POSITIVE AND MRSA @[facility]. ALL SAFETY MEASURES IN PLACE. BED IN LOWEST POSITION AND LOCKED. SIDE RAILS UP X3, BED ALARM ON. PLACE CALL LIGHT WITH IN REACH. WILL CONTINUE TO MONITOR.
[2022-01-13 20:00] VITALS: BP 111/68
[2022-01-13] MEDS: ENOXAPARIN SODIUM 40 MG/0.4 ML DISP.SYRIN SQ SCH (20:59)
--- NOTE | 2022-01-13 21:41 | NUR ---
RN NOTES: PT'S BLOOD SUGAR 249. 4 UNITS OF REGULAR INSULIN GIVEN. PT TOLERATED WELL. NO S/S OF HYPER/HYPOGLYCEMIA. WILL CONTINUE TO MONITOR
[2022-01-14] VITALS: BP 105/71
[2022-01-14 04:00] VITALS: BP 114/71
[2022-01-14] MEDS: LACTULOSE 10 G/15 ML UDC (PYXIS) PO SCH ×3 (04:49→21:15)
--- NOTE | 2022-01-14 06:40 | NUR ---
RN CLOSING NOTES: PATIENT IN BED, AWAKE, A/OX 3-4 WITH EPISODE OF CONFUSION AND VERBALLY RESPONSIVE. ON O2 AT 12L SIMPLE MASK AND PT TOLERATED WELL. O2 SAT 100%. BREATHING EVEN AND UNLABORED. IV ACCESS ON RFA#20G AND LAC #20G INTACT AND PATENT. NO S/S OF INFILTRATIONS. NO C/O PAIN OR DISCOMFORT. NO ACUTE DISTRESS. HORTON CATHETER IN PLACE. DRAINING BY GRAVITY. ON ISOLATION FOR COVID POSITIVE AND MRSA @[facility]. ALL DUE MEDS GIVEN ORDERED. ALL SAFETY MEASURES IN PLACE. BED IN LOWEST POSITION AND LOCKED. SIDE RAILS UP X3, BED ALARM ON. PLACE CALL LIGHT WITH IN REACH. WILL ENDORSE TO MORNING SHIFT NURSE.
[2022-01-14 06:54] LABS: BASOPHILS % (AUTO) 0.1 % (0.0-2.0); EOSINOPHILS % (AUTO) 1.7 % (0.0-6.0); HEMATOCRIT 38 % (39-51); HEMOGLOBIN 12.5 g/dL (13.5-17.5); LYMPHOCYTES # (AUTO) 0.4 K/uL (0.8-4.8); LYMPHOCYTES % (AUTO) 7.1 % (20.0-44.0); MEAN CORPUSCULAR HGB CONC 33 g/dl (31.0-36.0); MEAN CORPUSCULAR VOLUME 94 fL (80-96); MONOCYTES # (AUTO) 0.4 K/uL (0.1-1.30); NEUTROPHILS # (AUTO) 5.3 K/uL (1.8-8.9); NEUTROPHILS % (AUTO) 85.1 % (43.0-81.0); PLATELET COUNT (AUTO) 107 K/uL (150-450); WHITE BLOOD COUNT (AUTO) 6.2 K/uL (4.3-11.0)
[2022-01-14 07:19] LABS: CALCIUM, SERUM 8.9 mg/dL (8.5-10.1); CREATININE 0.7 mg/dL (0.6-1.3); POTASSIUM 4.1 mmol/L (3.5-5.1)
[2022-01-14 08:00] VITALS: BP 122/70
[2022-01-14] MEDS: DEXAMETHASONE SOD PHOSPHATE 10 MG/ML VIAL IV SCH (08:23)
[2022-01-14] MEDS: FERROUS SULFATE (325 MG) 325 MG/TAB TABLET PO SCH ×3 (08:23→18:16)
[2022-01-14] MEDS: PANTOPRAZOLE 40 MG TABLET.DR PO SCH (08:23)
[2022-01-14] MEDS: FLUOXETINE HCL 20 MG CAPSULE PO SCH (08:23)
[2022-01-14] MEDS: BLOOD SUGAR DIAGNOSTIC 1 EACH STRIP VI SCH ×4 (08:23→21:27)
[2022-01-14] MEDS: *INSULIN REGULAR(HUMULIN R)HUM 100 UNIT/ML VIAL SQ PRN ×2 (08:26→21:30)
[2022-01-14] MEDS: MUPIROCIN OINT 2% 22 GM TUBE NS SCH ×2 (09:45→21:15)
[2022-01-14] MEDS: CLOTRIMAZOLE/BETAMETASONE DIPROPIONATE 15 GM TUBE TP SCH ×2 (09:46→18:17)
[2022-01-14] MEDS: THERAHONEY GEL 1.5 OZ TUBE TP SCH (09:46)
[2022-01-14] MEDS: PROSOURCE / PROSTAT (PYXIS) 30 ML UDC GT SCH (10:41)
[2022-01-14 12:00] VITALS: BP 112/60
[2022-01-14 16:00] VITALS: BP 121/72
[2022-01-14] MEDS: INSULIN REGULAR, HUMAN 100 UNIT/ML 3 ML VIAL SQ PRN (17:39)
--- NOTE | 2022-01-14 18:21 | NUR ---
RN NOTE PT RESTING IN BED, IN 02 @10L VIA SIMPLE MASK, TOLERATING WELL. NO SOB NOTED WITH O2 SAT OF 94. PT IS SR IN TELE READING. WITH IV ACCESS IN RFA G20 AND LAC G20 INTACT AND PATENT. NO IVF. DUE MEDS GIVEN. AM/PM CARE DONE. V/S STABLE. WILL CONT TO MONITOR SAFETY MEASURES FOLLOWED.
--- NOTE | 2022-01-14 19:42 | NUR ---
RN OPENING NOTES: RECEIVED PATIENT IN BED, SITTING POSITION. AWAKE, A/OX 3-4 WITH EPISODE OF CONFUSION AND VERBALLY RESPONSIVE. ON O2 AT 10L SIMPLE MASK AND PT TOLERATED WELL. BREATHING EVEN AND UNLABORED. IV ACCESS ON RFA#20G AND LAC #20G INTACT AND PATENT. NO S/S OF INFILTRATIONS. NO C/O PAIN OR DISCOMFORT. NO ACUTE DISTRESS. HORTON CATHETER IN PLACE. DRAINING BY GRAVITY. ON ISOLATION PRECAUTION FOR COVID POSITIVE AND MRSA @[facility]. ALL SAFETY MEASURES IN PLACE. BED IN LOWEST POSITION AND LOCKED. SIDE RAILS UP X3, BED ALARM ON. PLACE CALL LIGHT WITH IN REACH. WILL CONTINUE TO MONITOR.
[2022-01-14 20:00] VITALS: BP 112/75
[2022-01-14] MEDS: ENOXAPARIN SODIUM 40 MG/0.4 ML DISP.SYRIN SQ SCH (21:16)
--- NOTE | 2022-01-14 22:12 | NUR ---
RN NOTES: PT'S BLOOD SUGAR 374. 10 UNITS OF REGULAR INSULIN GIVEN PER SLIDING SCALE. NO S/S OF HYPER/HYPOGLYCEMIA. WILL CONTINUE TO MONITOR
[2022-01-15] VITALS: BP 111/68
[2022-01-15 04:00] VITALS: BP 100/65
[2022-01-15] MEDS: LACTULOSE 10 G/15 ML UDC (PYXIS) PO SCH ×3 (04:26→23:01)
[2022-01-15 06:27] LABS: EOSINOPHILS % (AUTO) 1.3 % (0.0-6.0); HEMATOCRIT 36 % (39-51); HEMOGLOBIN 11.8 g/dL (13.5-17.5); LYMPHOCYTES # (AUTO) 0.4 K/uL (0.8-4.8); LYMPHOCYTES % (AUTO) 5.4 % (20.0-44.0); MEAN CORPUSCULAR HGB CONC 33 g/dl (31.0-36.0); MEAN CORPUSCULAR VOLUME 94 fL (80-96); MONOCYTES # (AUTO) 0.4 K/uL (0.1-1.30); MONOCYTES % (AUTO) 6.3 % (2.0-12.0); NEUTROPHILS # (AUTO) 5.7 K/uL (1.8-8.9); PLATELET COUNT (AUTO) 99 K/uL (150-450); RED BLOOD CELL COUNT(AUTO) 3.81 MIL/uL (4.5-6.0); WHITE BLOOD COUNT (AUTO) 6.5 K/uL (4.3-11.0)
--- NOTE | 2022-01-15 06:51 | NUR ---
RN CLOSING NOTES: PATIENT IN BED, AWAKE, A/OX 3-4 WITH EPISODE OF CONFUSION AND VERBALLY RESPONSIVE. ON O2 AT 10L SIMPLE MASK AND PT TOLERATED WELL. O2 SAT 96%. BREATHING EVEN AND UNLABORED. IV ACCESS ON RFA#20G AND LAC #20G INTACT AND PATENT. NO S/S OF INFILTRATIONS. NO C/O PAIN OR DISCOMFORT. NO ACUTE DISTRESS. HORTON CATHETER IN PLACE. DRAINING BY GRAVITY. ON ISOLATION FOR COVID POSITIVE AND MRSA @[facility]. ALL DUE MEDS GIVEN ORDERED. ALL SAFETY MEASURES IN PLACE. BED IN LOWEST POSITION AND LOCKED. SIDE RAILS UP X3, BED ALARM ON. PLACE CALL LIGHT WITH IN REACH. WILL ENDORSE TO MORNING SHIFT NURSE.
[2022-01-15 06:59] LABS: CALCIUM, SERUM 8.6 mg/dL (8.5-10.1); CREATININE 0.8 mg/dL (0.6-1.3); POTASSIUM 4.2 mmol/L (3.5-5.1)
--- NOTE | 2022-01-15 07:20 | NUR ---
RN NOTE RECEIVED PATIENT IN BED RESTING ALERT ORIENTED X3-4 VERBALLY RESPONSIVE ON 10L OXYGEN VIA SIMPLE MASK,O2:96% ,COVID POSITIVE IN ISOLATION,IV SITE IS ON LAC AND RIGHT FOREARM INTACT PATENT,HORTON IN PLACE URINE DRAINING YELLOW BY GRAVITY,SAFETY MEASURE IMPLEMENT BED IN LOW POSITION AND LOCKED,HEAD OF THE BED ELEVATED,CALL LIGHT WITHIN REACH CONTINUE TO MONITOR
[2022-01-15] MEDS: PANTOPRAZOLE 40 MG TABLET.DR PO SCH (07:46)
[2022-01-15] MEDS: BLOOD SUGAR DIAGNOSTIC 1 EACH STRIP VI SCH ×4 (07:46→23:10)
[2022-01-15 08:00] VITALS: BP 112/65
[2022-01-15] MEDS: DEXAMETHASONE SOD PHOSPHATE 10 MG/ML VIAL IV SCH (09:16)
[2022-01-15] MEDS: FLUOXETINE HCL 20 MG CAPSULE PO SCH (09:16)
[2022-01-15] MEDS: FERROUS SULFATE (325 MG) 325 MG/TAB TABLET PO SCH ×3 (09:16→16:40)
[2022-01-15] MEDS: PROSOURCE / PROSTAT (PYXIS) 30 ML UDC GT SCH (09:17)
[2022-01-15] MEDS: MUPIROCIN OINT 2% 22 GM TUBE NS SCH (09:23)
[2022-01-15] MEDS: CLOTRIMAZOLE/BETAMETASONE DIPROPIONATE 15 GM TUBE TP SCH ×2 (09:24→16:41)
[2022-01-15] MEDS: THERAHONEY GEL 1.5 OZ TUBE TP SCH (09:24)
[2022-01-15 12:00] VITALS: BP 109/66
[2022-01-15] MEDS: *INSULIN REGULAR(HUMULIN R)HUM 100 UNIT/ML VIAL SQ PRN ×2 (12:09→23:47)
[2022-01-15 16:00] VITALS: BP 107/68
[2022-01-15] MEDS: INSULIN REGULAR, HUMAN 100 UNIT/ML 3 ML VIAL SQ PRN (16:55)
--- NOTE | 2022-01-15 18:57 | NUR ---
RN NOTE PATIENT REMAINS ALERT ORIENTED X3 VERBALLY RESPONSIVE ON 10L OXYGEN VIA MASK NO SOB NOT ACUTE DISTRESS NOTED ALL DUE MEDS GIVEN MD ORDERED,WOUND TREATMENT DONE,REPOSITIONED AND TURNED EVERY 2 HOURS,KEPT CLEAN AND DRY ALL THE TIME,KEPT HEAD OF BED ELEVATED ALL THE TIME,ALL NEEDS MET ENDORSE NEXT COMING SHIFT FOR CONTINUATION OF CARE
--- NOTE | 2022-01-15 19:30 | NUR ---
PT RECEIVED IN BED AWAKE AND RESTING. ALERT ORIENTED X3-4. VERBALLY RESPONSIVE, ABLE TO MAKE NEEDS KNOWN. ON 10L OXYGEN VIA SIMPLE MASK WITH AN O2 SAT OF 96%-98% ,COVID POSITIVE IN ISOLATION, IV SITE IS ON LAC AND RIGHT FOREARM. FC IN PLACE URINE DRAINING CLEAR, URINE BY GRAVITY, SAFETY MEASURES IN PLACE. BED IN LOWEST POSITION, CALL LIGHT WITHIN REACH, SIDE RAILS UP X2. BED ALARM ON. WILL CONTINUE PLAN OF CARE.
[2022-01-15 20:00] VITALS: BP 105/63
[2022-01-15] MEDS: ENOXAPARIN SODIUM 40 MG/0.4 ML DISP.SYRIN SQ SCH (23:03)
[2022-01-16] VITALS: BP 108/62
[2022-01-16 04:00] VITALS: BP 110/65
[2022-01-16] MEDS: LACTULOSE 10 G/15 ML UDC (PYXIS) PO SCH ×3 (04:44→21:20)
--- NOTE | 2022-01-16 05:39 | NUR ---
OFFERED BED BATH A COUPLE OF TIMES AND EXPLAINED THE IMPORTANCE OF WOUND CARE TO PT. EXPLAINED THAT WE NEED TO TAKE PICTURES OF HIS WOUND AND DO DRESSING CHANGE. PT REFUSED STATING HE NEEDS TO REST AND HE DOESN'T WANT TO DO IT. CHARGE NURSE INFORMED.
--- NOTE | 2022-01-16 07:09 | NUR ---
PT IN BED ASLEEP BUT EASILY AWAKENS. ALERT ORIENTED X3-4. VERBALLY RESPONSIVE, ABLE TO MAKE NEEDS KNOWN. ON 10L OXYGEN VIA SIMPLE MASK WITH AN O2 SAT OF 96%-98% ,COVID POSITIVE IN ISOLATION, IV SITE IS ON LAC AND RIGHT FOREARM, PATENT AND FLUSHING WELL. FC IN PLACE, DRAINING CLEAR, YELLOW URINE BY GRAVITY, SAFETY MEASURES MAINTAINED. BED IN LOWEST POSITION, CALL LIGHT WITHIN REACH, SIDE RAILS UP X2. BED ALARM ON. WILL ENDORSE TO NEXT NURSE ON DUTY FOR CONTINUITY OF CARE.
[2022-01-16 07:15] LABS: BASOPHILS % (AUTO) 0.1 % (0.0-2.0); EOSINOPHILS % (AUTO) 0.6 % (0.0-6.0); HEMATOCRIT 40 % (39-51); HEMOGLOBIN 12.9 g/dL (13.5-17.5); LYMPHOCYTES # (AUTO) 0.4 K/uL (0.8-4.8); LYMPHOCYTES % (AUTO) 2.6 % (20.0-44.0); MEAN CORPUSCULAR HGB CONC 32 g/dl (31.0-36.0); MEAN CORPUSCULAR VOLUME 95 fL (80-96); MONOCYTES # (AUTO) 0.6 K/uL (0.1-1.30); MONOCYTES % (AUTO) 4.2 % (2.0-12.0); NEUTROPHILS # (AUTO) 12.5 K/uL (1.8-8.9); NEUTROPHILS % (AUTO) 92.5 % (43.0-81.0); PLATELET COUNT (AUTO) 138 K/uL (150-450); WHITE BLOOD COUNT (AUTO) 13.5 K/uL (4.3-11.0)
[2022-01-16 07:49] LABS: CREATININE 0.7 mg/dL (0.6-1.3); POTASSIUM 4.5 mmol/L (3.5-5.1)
[2022-01-16 08:00] VITALS: BP 127/73
[2022-01-16] MEDS: FLUOXETINE HCL 20 MG CAPSULE PO SCH (08:07)
[2022-01-16] MEDS: FERROUS SULFATE (325 MG) 325 MG/TAB TABLET PO SCH ×3 (08:07→16:51)
[2022-01-16] MEDS: PANTOPRAZOLE 40 MG TABLET.DR PO SCH (08:07)
[2022-01-16] MEDS: DEXAMETHASONE SOD PHOSPHATE 10 MG/ML VIAL IV SCH (08:08)
[2022-01-16] MEDS: BLOOD SUGAR DIAGNOSTIC 1 EACH STRIP VI SCH ×4 (08:08→21:41)
[2022-01-16] MEDS: INSULIN REGULAR, HUMAN 100 UNIT/ML 3 ML VIAL SQ PRN ×2 (08:11→12:48)
[2022-01-16] MEDS: PROSOURCE / PROSTAT (PYXIS) 30 ML UDC GT SCH (08:55)
[2022-01-16] MEDS: CLOTRIMAZOLE/BETAMETASONE DIPROPIONATE 15 GM TUBE TP SCH ×2 (10:40→16:51)
[2022-01-16] MEDS: THERAHONEY GEL 1.5 OZ TUBE TP SCH (10:40)
[2022-01-16 12:00] VITALS: BP 98/46
[2022-01-16 16:00] VITALS: BP 98/53
--- NOTE | 2022-01-16 19:10 | NUR ---
RN NOTES RECEIVED PT FOR CONTINUITY OF CARE. PATIENT A/OX2-3 IN NO S/SX OF ACUTE DISTRESS AT THIS TIME; CURRENTLY ON 10L OF 02 VIA SIMPLE MASK; WITH 02 SAT OF 93% AT THIS TIME. WITH IV ACCESS ON R FA#20 AND L AC#20 BOTH PATENT, INTACT AND FLUSHING WELL. WILL ENSURE SAFETY MEASURES WITHIN THE SHIFT. PATIENT BED ALARM IS ON. HEAD OF BED ELEVATED. BED IS LOCKED, IN LOWEST POSITION AND SIDE RAILS UP. CALL LIGHT WITHIN REACH OF THE PATIENT. APPLICABLE ISOLATION PRECAUTIONS IN PLACE. WILL CONTINUE TO MONITOR AND REASSESS FOR ANY CHANGES AND WILL CARRY OUT ANY ONGOING AND ACTIVE MD ORDER.
[2022-01-16 20:00] VITALS: BP 107/65
[2022-01-16] MEDS: ENOXAPARIN SODIUM 40 MG/0.4 ML DISP.SYRIN SQ SCH (21:22)
[2022-01-16] MEDS: *INSULIN REGULAR(HUMULIN R)HUM 100 UNIT/ML VIAL SQ PRN (21:38)
[2022-01-17] VITALS: BP 98/65
[2022-01-17 04:00] VITALS: BP 98/67
--- NOTE | 2022-01-17 04:00 | NUR ---
RN NOTES PATIENT REMAINED TO BE IN NO SIGNS OF ACUTE RESPIRATORY DISTRESS , SAFE ENVIRONMENT MAINTAINED FOR PT. AM PATIENT CARE RENDERED. WILL CONTINUE TO MONITOR AND REASSESS FOR ANY CHANGES THROUGHOUT THE SHIFT.
[2022-01-17] MEDS: LACTULOSE 10 G/15 ML UDC (PYXIS) PO SCH ×3 (04:48→21:56)
--- NOTE | 2022-01-17 06:44 | NUR ---
RN CLOSING NOTE: PATIENT REMAINS IN ROOM IN NO SIGNS OF RESPIRATORY DISTRESS, PATIENT NOW ON 8L OF 02 VIA SIMPLE MASK;TOLERATING WELL SATURATING @ 95% SP02. SR ON MONITOR. 1 BM DURING THE SHIFT.SAFETY MEASURES IMPLEMENTED, BED IN LOWEST POSITION, LOCKED, SIDE RAILS UP, CALL LIGHT WITHIN REACH. ALL NEEDS AND ORDERS ADDRESSED DURING THE SHIFT. IV ACCESS MAINTAINED INTACT, SECURED AND FLUSHING WELL. ALL DUE MEDS GIVEN ORDERED & SCHEDULED ; PATIENT TOLERATED WELL. PATIENT KEPT CLEAN AND COMFORTABLE WITHIN THE SHIFT. PATIENT ENDORSED TO INCOMING SHIFT RN WITH STABLE VITAL SIGN AND FOR CONTINUITY OF CARE.
[2022-01-17 07:40] LABS: HEMATOCRIT 36 % (39-51); HEMOGLOBIN 12.1 g/dL (13.5-17.5); LYMPHOCYTES # (AUTO) 0.2 K/uL (0.8-4.8); LYMPHOCYTES % (AUTO) 2.1 % (20.0-44.0); MEAN CORPUSCULAR HGB CONC 33 g/dl (31.0-36.0); MEAN CORPUSCULAR VOLUME 95 fL (80-96); MONOCYTES # (AUTO) 0.5 K/uL (0.1-1.30); MONOCYTES % (AUTO) 4.2 % (2.0-12.0); NEUTROPHILS # (AUTO) 11.2 K/uL (1.8-8.9); NEUTROPHILS % (AUTO) 93.7 % (43.0-81.0); PLATELET COUNT (AUTO) 78 K/uL (150-450); RED BLOOD CELL COUNT(AUTO) 3.83 MIL/uL (4.5-6.0); WHITE BLOOD COUNT (AUTO) 11.9 K/uL (4.3-11.0)
[2022-01-17] MEDS: PANTOPRAZOLE 40 MG TABLET.DR PO SCH (07:44)
[2022-01-17 08:00] VITALS: BP 108/57
[2022-01-17] MEDS: BLOOD SUGAR DIAGNOSTIC 1 EACH STRIP VI SCH ×4 (08:01→22:22)
[2022-01-17 08:06] LABS: CALCIUM, SERUM 9.2 mg/dL (8.5-10.1); CREATININE 0.9 mg/dL (0.6-1.3); POTASSIUM 5.4 mmol/L (3.5-5.1)
[2022-01-17] MEDS: INSULIN REGULAR, HUMAN 100 UNIT/ML 3 ML VIAL SQ PRN ×2 (08:33→18:58)
[2022-01-17] MEDS: FLUOXETINE HCL 20 MG CAPSULE PO SCH (08:55)
[2022-01-17] MEDS: FERROUS SULFATE (325 MG) 325 MG/TAB TABLET PO SCH ×3 (08:55→17:59)
[2022-01-17] MEDS: DEXAMETHASONE SOD PHOSPHATE 10 MG/ML VIAL IV SCH (08:55)
[2022-01-17] MEDS: PROSOURCE / PROSTAT (PYXIS) 30 ML UDC GT SCH (08:56)
[2022-01-17] MEDS: CLOTRIMAZOLE/BETAMETASONE DIPROPIONATE 15 GM TUBE TP SCH ×2 (08:56→18:00)
[2022-01-17] MEDS: THERAHONEY GEL 1.5 OZ TUBE TP SCH (08:56)
[2022-01-17 10:08] LABS: LYMPHOCYTES % (MANUAL) 2 % (16-48); MONOCYTES % (MANUAL) 4 % (0-11.0); NEUTROPHILS % (MANUAL) 94 (42-76)
[2022-01-17] MEDS ORDERED: SODIUM POLYSTYRENE SULFONATE 15 G/60 ML BOTTLE PO ONE (10:30)
[2022-01-17 12:00] VITALS: BP 100/62
[2022-01-17 16:00] VITALS: BP 104/64
[2022-01-17] MEDS: GLUCERNA SHAKE 237 ML CAN PO SCH (17:59)
--- NOTE | 2022-01-17 19:00 | NUR ---
RN CLOSING NOTE: PATIENT IN BED, WITH NO SIGNS OF RESPIRATORY DISTRESS, PATIENT ON 8L OF 02 VIA SIMPLE MASK; SATURATING @ 94% SP02. SR ON MONITOR. 2 BM DURING THE SHIFT.SAFETY MEASURES IMPLEMENTED, IV ACCESS MAINTAINED INTACT, SECURED AND FLUSHING WELL. ALL DUE MEDS GIVEN ORDERED & SCHEDULED ; PATIENT TOLERATED WELL. PATIENT KEPT CLEAN AND COMFORTABLE WITHIN THE SHIFT. BED IN LOWEST POSITION, LOCKED, SIDE RAILS UP X3, CALL LIGHT WITHIN REACH. ALL NEEDS AND ORDERS ADDRESSED DURING THE SHIFT. PATIENT ENDORSED TO CLINICAL TRIALS NURSE NURSE.
--- NOTE | 2022-01-17 19:20 | NUR ---
RN NOTES RECEIVED PT FOR CONTINUITY OF CARE. PATIENT A/OX2-3 IN NO S/SX OF ACUTE DISTRESS AT THIS TIME; CURRENTLY ON 8L OF 02 VIA SIMPLE MASK; WITH 02 SAT OF 94% AT THIS TIME. WITH IV ACCESS ON R FA#20 AND L AC#20 BOTH PATENT, INTACT AND FLUSHING WELL. WILL ENSURE SAFETY MEASURES WITHIN THE SHIFT. PATIENT BED ALARM IS ON. HEAD OF BED ELEVATED. BED IS LOCKED, IN LOWEST POSITION AND SIDE RAILS UP. CALL LIGHT WITHIN REACH OF THE PATIENT. APPLICABLE ISOLATION PRECAUTIONS IN PLACE. WILL CONTINUE TO MONITOR AND REASSESS FOR ANY CHANGES AND WILL CARRY OUT ANY ONGOING AND ACTIVE MD ORDER.
[2022-01-17 20:00] VITALS: BP 92/60
[2022-01-17] MEDS: *INSULIN REGULAR(HUMULIN R)HUM 100 UNIT/ML VIAL SQ PRN (22:22)
[2022-01-18] VITALS: BP 100/66
[2022-01-18 04:00] VITALS: BP 101/76
[2022-01-18] MEDS: LACTULOSE 10 G/15 ML UDC (PYXIS) PO SCH ×3 (04:27→21:20)
--- NOTE | 2022-01-18 06:29 | NUR ---
RN CLOSING NOTE: PATIENT REMAINS IN ROOM IN NO SIGNS OF RESPIRATORY DISTRESS, PATIENT NOW ON 5L OF 02 VIA NC;TOLERATING WELL SATURATING @>95% SP02. SR ON MONITOR. 1 BM DURING THE SHIFT.SAFETY MEASURES IMPLEMENTED, BED IN LOWEST POSITION, LOCKED, SIDE RAILS UP, CALL LIGHT WITHIN REACH. ALL NEEDS AND ORDERS ADDRESSED DURING THE SHIFT. IV ACCESS MAINTAINED INTACT, SECURED AND FLUSHING WELL. ALL DUE MEDS GIVEN ORDERED & SCHEDULED ; PATIENT TOLERATED WELL. PATIENT KEPT CLEAN AND COMFORTABLE WITHIN THE SHIFT. PATIENT ENDORSED TO INCOMING SHIFT RN WITH STABLE VITAL SIGN AND FOR CONTINUITY OF CARE.
[2022-01-18 07:31] LABS: HEMATOCRIT 35 % (39-51); HEMOGLOBIN 11.6 g/dL (13.5-17.5); LYMPHOCYTES # (AUTO) 0.2 K/uL (0.8-4.8); LYMPHOCYTES % (AUTO) 2.2 % (20.0-44.0); MEAN CORPUSCULAR HGB CONC 33 g/dl (31.0-36.0); MEAN CORPUSCULAR VOLUME 95 fL (80-96); MONOCYTES # (AUTO) 0.5 K/uL (0.1-1.30); MONOCYTES % (AUTO) 4.8 % (2.0-12.0); NEUTROPHILS # (AUTO) 9.7 K/uL (1.8-8.9); PLATELET COUNT (AUTO) 67 K/uL (150-450); RED BLOOD CELL COUNT(AUTO) 3.66 MIL/uL (4.5-6.0); WHITE BLOOD COUNT (AUTO) 10.4 K/uL (4.3-11.0)
[2022-01-18 08:00] VITALS: BP 91/52
[2022-01-18] MEDS: FERROUS SULFATE (325 MG) 325 MG/TAB TABLET PO SCH ×3 (08:51→18:02)
[2022-01-18] MEDS: PANTOPRAZOLE 40 MG TABLET.DR PO SCH (08:51)
[2022-01-18] MEDS: DEXAMETHASONE SOD PHOSPHATE 10 MG/ML VIAL IV SCH (08:51)
[2022-01-18] MEDS: FLUOXETINE HCL 20 MG CAPSULE PO SCH (08:51)
[2022-01-18] MEDS: INSULIN REGULAR, HUMAN 100 UNIT/ML 3 ML VIAL SQ PRN ×3 (08:53→18:06)
[2022-01-18] MEDS: PROSOURCE / PROSTAT (PYXIS) 30 ML UDC GT SCH (08:57)
[2022-01-18] MEDS: GLUCERNA SHAKE 237 ML CAN PO SCH ×2 (08:58→18:08)
[2022-01-18] MEDS: THERAHONEY GEL 1.5 OZ TUBE TP SCH (08:58)
[2022-01-18] MEDS: CLOTRIMAZOLE/BETAMETASONE DIPROPIONATE 15 GM TUBE TP SCH ×2 (09:00→18:07)
[2022-01-18 09:01] LABS: CREATININE 0.8 mg/dL (0.6-1.3); POTASSIUM 3.8 mmol/L (3.5-5.1)
[2022-01-18] MEDS: BLOOD SUGAR DIAGNOSTIC 1 EACH STRIP VI SCH ×4 (09:01→21:54)
[2022-01-18] MEDS: MIDODRINE HCL (5MG) 5 MG TABLET PO PRN (10:05)
[2022-01-18 12:00] VITALS: BP 106/58
[2022-01-18 16:00] VITALS: BP 100/56
--- NOTE | 2022-01-18 19:40 | NUR ---
RN OPENING NOTES: RECEIVED PATIENT IN BED, SITTING POSITION. AWAKE, A/OX 3-4 WITH EPISODE OF CONFUSION AND VERBALLY RESPONSIVE. ON O2 AT 1L/MIN VIA N/C AND PT TOLERATED WELL. BREATHING EVEN AND UNLABORED. IV ACCESS ON RFA#20G INTACT AND PATENT. NO S/S OF INFILTRATIONS. NO C/O PAIN OR DISCOMFORT. NO ACUTE DISTRESS. HORTON CATHETER IN PLACE. DRAINING BY GRAVITY. ON ISOLATION PRECAUTION FOR COVID. ALL SAFETY MEASURES IN PLACE. BED IN LOWEST POSITION AND LOCKED. SIDE RAILS UP X3, BED ALARM ON. PLACE CALL LIGHT WITH IN REACH. WILL CONTINUE TO MONITOR.
[2022-01-18 20:00] VITALS: BP 100/66
[2022-01-18] MEDS: *INSULIN REGULAR(HUMULIN R)HUM 100 UNIT/ML VIAL SQ PRN (21:56)
--- NOTE | 2022-01-18 22:07 | NUR ---
RN NOTES: PT'S BLOOD SUGAR 257. 6 UNITS OF REGULAR INSULIN GIVEN PER SLIDING SCALE. NO S/S OF HYPER/HYPOGLYCEMIA. WILL CONTINUE TO MONITOR
[2022-01-19] VITALS: BP 104/61
[2022-01-19 04:00] VITALS: BP 93/60
[2022-01-19] MEDS: LACTULOSE 10 G/15 ML UDC (PYXIS) PO SCH ×3 (05:06→21:55)
[2022-01-19] MEDS: MIDODRINE HCL (5MG) 5 MG TABLET PO PRN (05:16)
--- NOTE | 2022-01-19 05:18 | NUR ---
RN NOTES: PT'S BP 93/60. MIDODRINE 5 MG TAB GIVEN AND PT TOLERATED WELL. WILL CONTINUE TO MONITOR
--- NOTE | 2022-01-19 06:46 | NUR ---
RN CLOSING NOTES: PATIENT IN BED, SITTING POSITION. AWAKE, A/OX 3-4 WITH EPISODE OF CONFUSION AND VERBALLY RESPONSIVE. ON O2 AT 2L/MIN VIA N/C AND PT TOLERATED WELL. O2 SAT 93%. BREATHING EVEN AND UNLABORED. IV ACCESS ON RFA#20G INTACT AND PATENT. NO S/S OF INFILTRATIONS. NO C/O PAIN OR DISCOMFORT. NO ACUTE DISTRESS. HORTON CATHETER IN PLACE. DRAINING BY GRAVITY. ALL DUE MEDS GIVEN ORDERED. ON ISOLATION PRECAUTION FOR COVID. ALL SAFETY MEASURES IN PLACE. BED IN LOWEST POSITION AND LOCKED. SIDE RAILS UP X3, BED ALARM ON. PLACE CALL LIGHT WITH IN REACH. WILL ENDORSE TO MORNING SHIFT NURSE.
--- NOTE | 2022-01-19 07:30 | NUR ---
RN OPENING NOTES: PATIENT IN BED, SITTING POSITION. AWAKE, A/OX 3-4 WITH EPISODE OF CONFUSION AND VERBALLY RESPONSIVE. ON O2 AT 2L/MIN VIA N/C AND PT TOLERATED WELL. O2 SAT 93%. BREATHING EVEN AND UNLABORED. IV ACCESS ON RFA#20G INTACT AND PATENT. NO S/S OF INFILTRATIONS. NO C/O PAIN OR DISCOMFORT. NO ACUTE DISTRESS. HORTON CATHETER IN PLACE. DRAINING BY GRAVITY. ON ISOLATION PRECAUTION FOR COVID. ALL SAFETY MEASURES IN PLACE. BED IN LOWEST POSITION AND LOCKED. SIDE RAILS UP X3, BED ALARM ON. PLACE CALL LIGHT WITH IN REACH. WILL CONTINUE PLAN OF CARE AND ANTICIPATE NEEDS.
[2022-01-19 07:42] LABS: HEMATOCRIT 35 % (39-51); HEMOGLOBIN 11.6 g/dL (13.5-17.5); LYMPHOCYTES # (AUTO) 0.2 K/uL (0.8-4.8); LYMPHOCYTES % (AUTO) 2.9 % (20.0-44.0); MEAN CORPUSCULAR HGB CONC 34 g/dl (31.0-36.0); MEAN CORPUSCULAR VOLUME 95 fL (80-96); MONOCYTES # (AUTO) 0.4 K/uL (0.1-1.30); MONOCYTES % (AUTO) 5.3 % (2.0-12.0); NEUTROPHILS # (AUTO) 6.2 K/uL (1.8-8.9); NEUTROPHILS % (AUTO) 91.8 % (43.0-81.0); PLATELET COUNT (AUTO) 69 K/uL (150-450); RED BLOOD CELL COUNT(AUTO) 3.65 MIL/uL (4.5-6.0); WHITE BLOOD COUNT (AUTO) 6.8 K/uL (4.3-11.0)
[2022-01-19] MEDS: BLOOD SUGAR DIAGNOSTIC 1 EACH STRIP VI SCH ×4 (07:47→22:05)
[2022-01-19] MEDS: PANTOPRAZOLE 40 MG TABLET.DR PO SCH (07:47)
[2022-01-19 07:49] LABS: CREATININE 0.8 mg/dL (0.6-1.3); POTASSIUM 3.7 mmol/L (3.5-5.1)
[2022-01-19] MEDS: INSULIN REGULAR, HUMAN 100 UNIT/ML 3 ML VIAL SQ PRN ×3 (07:58→17:33)
[2022-01-19 08:00] VITALS: BP 105/54
[2022-01-19] MEDS: GLUCERNA SHAKE 237 ML CAN PO SCH ×2 (08:28→17:28)
[2022-01-19] MEDS: CLOTRIMAZOLE/BETAMETASONE DIPROPIONATE 15 GM TUBE TP SCH ×2 (08:52→17:29)
[2022-01-19] MEDS: THERAHONEY GEL 1.5 OZ TUBE TP SCH (08:52)
[2022-01-19] MEDS: FLUOXETINE HCL 20 MG CAPSULE PO SCH (08:55)
[2022-01-19] MEDS: PROSOURCE / PROSTAT (PYXIS) 30 ML UDC GT SCH (08:55)
[2022-01-19] MEDS: DEXAMETHASONE SOD PHOSPHATE 10 MG/ML VIAL IV SCH (08:56)
[2022-01-19] MEDS: FERROUS SULFATE (325 MG) 325 MG/TAB TABLET PO SCH ×3 (08:56→17:32)
[2022-01-19 09:42] LABS: LYMPHOCYTES % (MANUAL) 2 % (16-48); MONOCYTES % (MANUAL) 4 % (0-11.0); NEUTROPHILS % (MANUAL) 94 (42-76)
[2022-01-19 12:00] VITALS: BP 103/65
[2022-01-19 16:00] VITALS: BP 102/65
--- NOTE | 2022-01-19 19:13 | NUR ---
RN CLOSING NOTES: PATIENT IN BED, SITTING POSITION. AWAKE, A/OX 3-4 WITH EPISODE OF CONFUSION AND VERBALLY RESPONSIVE. ON O2 AT 2L/MIN VIA N/C AND PT TOLERATED WELL. O2 SAT 93%. BREATHING EVEN AND UNLABORED. IV ACCESS ON RFA#20G INTACT AND PATENT. NO S/S OF INFILTRATIONS. NO C/O PAIN OR DISCOMFORT. NO ACUTE DISTRESS. HORTON CATHETER IN PLACE. DRAINING BY GRAVITY. ON ISOLATION PRECAUTION FOR COVID. ALL SAFETY MEASURES IN PLACE. BED IN LOWEST POSITION AND LOCKED. SIDE RAILS UP X3, BED ALARM ON. PLACE CALL LIGHT WITH IN REACH. ALL DUE MEDICATIONS ADMINISTERED. ENDORSED TO NIGHTSHIFT RN FOR CONTINUATION OF CARE.
--- NOTE | 2022-01-19 19:30 | NUR ---
RN OPENING NOTES: RECEIVED PATIENT IN BED, AWAKE, A/OX 3-4,SLIGHT CONFUSION ON O2 AT 2L/MIN VIA N/C AND PT SEEMS TO HAVE LABORED BREATHING AND HIGH RESP RATE. INCREASED O2 TO 4L IV ACCESS ON RFA#20G INTACT AND PATENT. NO S/S OF INFILTRATIONS. NO C/O PAIN OR DISCOMFORT. NO ACUTE DISTRESS. HORTON CATHETER IN PLACE CLEAR YELLOW URINE WITH SEDIMENTS IN THE TUBING, ON ISOLATION PRECAUTION FOR COVID. ALL SAFETY MEASURES IN PLACE. BED IN LOWEST POSITION AND LOCKED. SIDE RAILS UP X3, BED ALARM ON. PLACE CALL LIGHT WITH IN REACH. WILL CONTINUE TO MONITOR THROUGHOUT SHIFT
[2022-01-19 20:00] VITALS: BP 113/70
[2022-01-19] MEDS: *INSULIN REGULAR(HUMULIN R)HUM 100 UNIT/ML VIAL SQ PRN (22:10)
[2022-01-20] VITALS: BP 117/69
[2022-01-20 04:00] VITALS: BP 103/70
[2022-01-20] MEDS: LACTULOSE 10 G/15 ML UDC (PYXIS) PO SCH ×3 (06:01→21:29)
--- NOTE | 2022-01-20 07:01 | NUR ---
RN CLOSING NOTES: PATIENT IN BED, AWAKE, A/OX 3-4,SLIGHT CONFUSION ON O2 AT 2L/MIN VIA N/C AND PT SEEMS TO HAVE LABORED BREATHING AND HIGH RESP RATE. INCREASED O2 TO 4L IV ON RHAND INTACT AND PATENT. NO S/S OF INFILTRATIONS. NO C/O PAIN OR DISCOMFORT. NO ACUTE DISTRESS. HORTON CATHETER IN PLACE CLEAR YELLOW URINE WITH SEDIMENTS IN THE TUBING OUTPUT RECORDED. ON ISOLATION PRECAUTION FOR COVID. ALL DUE MEDS GIVEN. ALL SAFETY MEASURES IN PLACE. BED IN LOWEST POSITION AND LOCKED. SIDE RAILS UP X3, PLACE CALL LIGHT WITHIN REACH. WILL ENDORSE TO MORNING SHIFT.
--- NOTE | 2022-01-20 07:30 | NUR ---
RN OPENING NOTE PATIENT IS IN BED, IN TEE'S POSITION, AWAKE, ALERT AND ORIENTED X 2. WITH OXYGEN VIA NASAL CANNULA AT 4L/MIN. SINUS RHYTHM ON CLOTH SHRINKING MACHINE OPERATOR HELPER. BREATHING UNLABORED AND NOT IN ANY FORMO F DISTRESS. WITH RIGHT HAND IV SALINE LOCK INTACT AND PATENT. HORTON CATHETER INTACT AND ATTACHED TO URINE BAG DRAINING TO A CLEAR YELLOW URINE. ALL HOSPITAL SAFETY PRECAUTIONS IN PLACE. BED IS LOCKED IN LOWEST POSITION, 3 SIDE RAILS UP, CALL LIGHT WITHIN REACH. WILL CONTINUE TO MONITOR THROUGHOUT SHIFT.
[2022-01-20 08:00] VITALS: BP 107/68
[2022-01-20] MEDS: GLUCERNA SHAKE 237 ML CAN PO SCH ×2 (08:15→17:22)
[2022-01-20] MEDS: BLOOD SUGAR DIAGNOSTIC 1 EACH STRIP VI SCH ×4 (08:15→21:43)
[2022-01-20] MEDS: PROSOURCE / PROSTAT (PYXIS) 30 ML UDC GT SCH (08:15)
[2022-01-20] MEDS: FERROUS SULFATE (325 MG) 325 MG/TAB TABLET PO SCH ×3 (08:51→17:24)
[2022-01-20] MEDS: DEXAMETHASONE SOD PHOSPHATE 10 MG/ML VIAL IV SCH (08:51)
[2022-01-20] MEDS: FLUOXETINE HCL 20 MG CAPSULE PO SCH (08:55)
[2022-01-20] MEDS: PANTOPRAZOLE 40 MG TABLET.DR PO SCH (08:56)
[2022-01-20] MEDS: INSULIN REGULAR, HUMAN 100 UNIT/ML 3 ML VIAL SQ PRN ×3 (09:00→17:28)
[2022-01-20] MEDS: HYDROCODONE/APAP 5/325MG TABLET PO PRN (09:10)
[2022-01-20] MEDS: THERAHONEY GEL 1.5 OZ TUBE TP SCH (09:18)
[2022-01-20] MEDS: CLOTRIMAZOLE/BETAMETASONE DIPROPIONATE 15 GM TUBE TP SCH ×2 (09:19→17:37)
[2022-01-20 12:00] VITALS: BP 115/70
--- NOTE | 2022-01-20 12:46 | NUR ---
RN NOTE PATIENT REMAINS STABLE OF THIS TIME. WOUND CARE DONE.
[2022-01-20 16:00] VITALS: BP 105/71
--- NOTE | 2022-01-20 18:55 | NUR ---
RN CLOSING NOTE PATIENT REMAINED STABLE THROUGHOUT SHIFT. TOLERATES O2 VIA NASAL CANNULA AT 4L/MIN. BREATHING UNLABORED AND NOT IN ANY FORM OF DISTRESS. RIGHT FOREARM IV LINE REMAINS INTACT AND PATENT. HORTON CATHETER REMAINS INTACT. ALL HOSPITAL SAFETY PRECAUTIONS IN PLACE. WILL ENDORSE TO MOTOR POOL CLERK NURSE.
--- NOTE | 2022-01-20 19:35 | NUR ---
RN OPENING NOTES: RECEIVED PATIENT IN BED, SITTING POSITION. AWAKE, A/OX 3-4 WITH EPISODE OF CONFUSION AND VERBALLY RESPONSIVE. ON O2 AT 4L/MIN VIA N/C AND PT TOLERATED WELL. BREATHING EVEN AND UNLABORED. IV ACCESS ON RFA#20G INTACT AND PATENT. NO S/S OF INFILTRATIONS. NO C/O PAIN OR DISCOMFORT. NO ACUTE DISTRESS. HORTON CATHETER IN PLACE. DRAINING BY GRAVITY. ALL SAFETY MEASURES IN PLACE. BED IN LOWEST POSITION AND LOCKED. SIDE RAILS UP X3, BED ALARM ON. PLACE CALL LIGHT WITH IN REACH. WILL CONTINUE TO MONITOR.
[2022-01-20 20:00] VITALS: BP 103/68
[2022-01-20] MEDS: *INSULIN REGULAR(HUMULIN R)HUM 100 UNIT/ML VIAL SQ PRN (21:45)
--- NOTE | 2022-01-20 21:49 | NUR ---
RN NOTES: PT'S BLOOD SUGAR 294. 6 UNIS OF REGULAR INSULIN GIVEN. NO S/S OF HYPER/HYPOGLYCEMIA. WILL CONTINUE TO MONITOR
[2022-01-21] VITALS: BP 105/63
[2022-01-21 04:00] VITALS: BP 106/68
[2022-01-21] MEDS: LACTULOSE 10 G/15 ML UDC (PYXIS) PO SCH ×3 (05:10→21:47)
--- NOTE | 2022-01-21 06:38 | NUR ---
RN CLOSING NOTES: PATIENT IN BED, SITTING POSITION. AWAKE, A/OX 3-4 WITH EPISODE OF CONFUSION AND VERBALLY RESPONSIVE. ON O2 AT 4L/MIN VIA N/C AND PT TOLERATED WELL. O2 SAT 93%. BREATHING EVEN AND UNLABORED. IV ACCESS ON RFA#20G INTACT AND PATENT. NO S/S OF INFILTRATIONS. NO C/O PAIN OR DISCOMFORT. NO ACUTE DISTRESS. HORTON CATHETER IN PLACE. DRAINING BY GRAVITY. DUE MEDS GIVEN ORDERED. ALL SAFETY MEASURES IN PLACE. BED IN LOWEST POSITION AND LOCKED. SIDE RAILS UP X3, BED ALARM ON. PLACE CALL LIGHT WITH IN REACH. WILL ENDORSE TO MORNING SHIFT NURSE.
--- NOTE | 2022-01-21 07:40 | NUR ---
AUTO TECHNICIAN MECHANIC OPENING NOTE RECEIVED PATIENT IN BED, ALERT AND ORIENTED X3-4. PATIENT HAS PERIODS OF CONFUSION AND VERBALLY RESPONSIVE.PATIENT IS ON 02 AT 4L/MIN VIA NASAL CANNULA AND PATIENT OXYGEN SATURATION AT 98%. NO SIGNS OF PAIN OR DISCOMFORT.PATIENT IS IV ACCESS ON RIGHT FOREARM 20 GUAGE INTACT, FLUSHING AND PATENT.HORTON CATHETHER DRAINING TO GRAVITY WITH YELLOW COLOR OUTPUT. ALL SAFETY MEASURES IN PLACE. BED LOCKED IN LOWEST POSITION. SIDE RAILS UP X3, BED ALARM ON. PLACE CALL LIGHT WITH IN REACH.
[2022-01-21] MEDS: PANTOPRAZOLE 40 MG TABLET.DR PO SCH (07:42)
[2022-01-21] MEDS: BLOOD SUGAR DIAGNOSTIC 1 EACH STRIP VI SCH ×4 (07:53→21:48)
[2022-01-21] MEDS: GLUCERNA SHAKE 237 ML CAN PO SCH ×2 (08:00→18:17)
[2022-01-21 08:25] VITALS: BP 101/61
[2022-01-21] MEDS: FLUOXETINE HCL 20 MG CAPSULE PO SCH (08:34)
[2022-01-21] MEDS: FERROUS SULFATE (325 MG) 325 MG/TAB TABLET PO SCH ×3 (08:34→17:06)
[2022-01-21] MEDS: DEXAMETHASONE SOD PHOSPHATE 10 MG/ML VIAL IV SCH (08:35)
[2022-01-21] MEDS: INSULIN REGULAR, HUMAN 100 UNIT/ML 3 ML VIAL SQ PRN ×3 (08:46→18:11)
--- NOTE | 2022-01-21 09:34 | NUR ---
WOUND CARE CONSULT: PT STATES BED IS UNCOMFORTABLE. RED RASH NOTED TO INGUINAL FOLDS, TREATED BY SURGICAL TEAM. RECOMMEND BARIATRIC BED (BARIMAX ETS AIR). DISCUSSED WITH NURSING STAFF.
[2022-01-21] MEDS: THERAHONEY GEL 1.5 OZ TUBE TP SCH (09:48)
[2022-01-21] MEDS: PROSOURCE / PROSTAT (PYXIS) 30 ML UDC GT SCH (11:01)
[2022-01-21] MEDS: CLOTRIMAZOLE/BETAMETASONE DIPROPIONATE 15 GM TUBE TP SCH ×2 (11:02→18:18)
[2022-01-21 12:00] VITALS: BP 105/66
[2022-01-21 16:00] VITALS: BP 122/73
--- NOTE | 2022-01-21 19:30 | NUR ---
COOLER WORKER OPENING NOTES RECEIVED PATIENT IN BED AWAKE, A/OX 3 WITH EPISODE OF CONFUSION. VERBALLY RESPONSIVE. ON O2 AT 4L/MIN VIA NC, PT TOLERATING WELL. BREATHING EVEN AND UNLABORED. IV ACCESS ON R HAND #20G INTACT AND PATENT. NO S/S OF INFILTRATIONS. NO S/SX OF ACUTE DISTRESS NOTED. WITH HORTON CATHETER IN PLACE. DRAINING BY GRAVITY. ALL SAFETY MEASURES IN PLACE. BED IN LOWEST POSITION AND LOCKED. SIDE RAILS UP X3, BED ALARM ON. CALL LIGHT WITHIN REACH. WILL CONTINUE TO MONITOR THROUGHOUT THE SHIFT.
[2022-01-21 20:00] VITALS: BP 109/70
--- NOTE | 2022-01-21 20:02 | NUR ---
AIR ANTISUBMARINE OFFICER CLOSING NOTE PATIENT IN BED, ALERT AND ORIENTED X3-4. PATIENT HAS PERIODS OF CONFUSION AND VERBALLY RESPONSIVE.PATIENT IS ON 02 AT 4L/MIN VIA NASAL CANNULA AND PATIENT OXYGEN SATURATION AT 98%. NO SIGNS OF PAIN OR DISCOMFORT.ALL NEEDS MET. KEPT CLEAN AND DRY.CHANGED WOUND DRESSING. PATIENT IS IV ACCESS ON RIGHT FOREARM 20 GUAGE INTACT, FLUSHING AND PATENT.HORTON CATHETHER DRAINING TO GRAVITY WITH YELLOW COLOR OUTPUT. ALL SAFETY MEASURES IN PLACE. BED LOCKED IN LOWEST POSITION. SIDE RAILS UP X3, BED ALARM ON. PLACE CALL LIGHT WITH IN REACH.
[2022-01-21] MEDS: HYDROCODONE/APAP 5/325MG TABLET PO PRN (21:48)
--- NOTE | 2022-01-21 21:48 | NUR ---
RN NOTE PT COMPLAINT OF PAIN ON THE L LOWER QUADRANT OF THE ABDOMEN RATED 7/10 IN PAIN SCALE. NORCO GIVEN PRN ORDER FOR PAIN, WILL CONT TO MONITOR.
--- NOTE | 2022-01-21 22:00 | NUR ---
RN NOTE BS CHECKED AT 236 MG/DL, 4 UNITS OF INSULIN GIVEN PER SLIDING SCALE. WILL CONT TO MONITOR.
[2022-01-21] MEDS: *INSULIN REGULAR(HUMULIN R)HUM 100 UNIT/ML VIAL SQ PRN (22:33)
[2022-01-22] VITALS: BP 104/66
[2022-01-22 04:00] VITALS: BP 106/71
[2022-01-22] MEDS: LACTULOSE 10 G/15 ML UDC (PYXIS) PO SCH ×3 (04:10→22:52)
[2022-01-22 05:10] LABS: ABG BASE EXCESS 8.4 mmol/L; ABG OXYGEN SATURATION 94.8 % (92.0-98.5); ABG PCO2 52.2 mmHg (35.0-45.0); ABG PH 7.433 (7.350-7.450); ABG PO2 76.2 mmHg (75.0-100.0); AaDO2 119.9 mmHg; COHb 0.9 % (0.5-1.5); MetHb 0.3 % (0.0-1.5); O2Hb 93.7 % (94.0-97.0); SITE, ABG Right Radial; VENT MODE, BG Nasal Cannula
--- NOTE | 2022-01-22 05:45 | NUR ---
RN NOTE RELAYED PATIENT AM ABG RESULT TO DOC PADDY, NO NEW ORDER AT THIS TIME, PLACED RESULT ON THE CHART, WILL CONT TO MONITOR PT.
--- NOTE | 2022-01-22 06:33 | NUR ---
AUTOMATIC PROFILE SHAPER OPERATOR CLOSING NOTES PATIENT IN BED AWAKE, A/OX 3 WITH EPISODE OF CONFUSION. VERBALLY RESPONSIVE. ON O2 AT 4L/MIN VIA NC, PT TOLERATING WELL. NO COMPLAINTS OF PAIN AT THIS TIME. IV ACCESS ON R HAND #20G INTACT AND PATENT. NO S/S OF INFILTRATIONS. NO S/SX OF ACUTE DISTRESS NOTED. WITH HORTON CATHETER IN PLACE. DRAINING BY GRAVITY. ALL SAFETY MEASURES IN PLACE. ALL DUE MEDS GIVEN, KEPT DRY AND CLEAN, BED IN LOWEST POSITION AND LOCKED. SIDE RAILS UP X3, BED ALARM ON. CALL LIGHT WITHIN REACH. WILL ENDORSE TO AM SHIFT NURSE FOR CONTINUITY OF CARE.
--- NOTE | 2022-01-22 07:22 | NUR ---
RN OPENING NOTES: RECEIVED PATIENT IN BED, AWAKE, A/OX 3-4 WITH EPISODE OF CONFUSION AND VERBALLY RESPONSIVE. ON O2 AT 4L/MIN VIA N/C AND PT TOLERATED WELL. BREATHING EVEN AND UNLABORED. IV ACCESS ON RFA#20G INTACT AND PATENT. NO S/S OF INFILTRATIONS. NO C/O PAIN OR DISCOMFORT. NO ACUTE DISTRESS. HORTON CATHETER IN PLACE. DRAINING BY GRAVITY. ALL SAFETY MEASURES IN PLACE. BED IN LOWEST POSITION AND LOCKED. SIDE RAILS UP X3, BED ALARM ON. PLACE CALL LIGHT WITH IN REACH. WILL CONTINUE TO MONITOR.
[2022-01-22] MEDS: BLOOD SUGAR DIAGNOSTIC 1 EACH STRIP VI SCH ×4 (07:55→23:04)
[2022-01-22 08:00] VITALS: BP 111/69
[2022-01-22] MEDS: INSULIN REGULAR, HUMAN 100 UNIT/ML 3 ML VIAL SQ PRN ×3 (08:03→18:06)
[2022-01-22] MEDS: DEXAMETHASONE SOD PHOSPHATE 10 MG/ML VIAL IV SCH (08:07)
[2022-01-22] MEDS: FERROUS SULFATE (325 MG) 325 MG/TAB TABLET PO SCH ×3 (08:07→17:35)
[2022-01-22] MEDS: FLUOXETINE HCL 20 MG CAPSULE PO SCH (08:07)
[2022-01-22] MEDS: PANTOPRAZOLE 40 MG TABLET.DR PO SCH (08:07)
[2022-01-22] MEDS: HYDROCODONE/APAP 5/325MG TABLET PO PRN (08:08)
[2022-01-22] MEDS: THERAHONEY GEL 1.5 OZ TUBE TP SCH (08:15)
[2022-01-22] MEDS: CLOTRIMAZOLE/BETAMETASONE DIPROPIONATE 15 GM TUBE TP SCH ×2 (08:16→17:35)
[2022-01-22] MEDS: GLUCERNA SHAKE 237 ML CAN PO SCH ×2 (08:22→17:35)
[2022-01-22] MEDS: PROSOURCE / PROSTAT (PYXIS) 30 ML UDC GT SCH (09:30)
[2022-01-22 12:00] VITALS: BP 117/71
[2022-01-22] MEDS: LORAZEPAM 0.5 MG TABLET PO PRN (15:15)
[2022-01-22 16:00] VITALS: BP 130/79
--- NOTE | 2022-01-22 18:29 | NUR ---
RN CLOSING NOTES: PATIENT IN BED, AWAKE, A/OX 3-4 WITH EPISODE OF CONFUSION AND VERBALLY RESPONSIVE. ON O2 AT 4L/MIN VIA N/C AND PT TOLERATED WELL. BREATHING EVEN AND UNLABORED. IV ACCESS ON RFA#20G INTACT AND PATENT. NO S/S OF INFILTRATIONS. NO C/O PAIN OR DISCOMFORT. NO ACUTE DISTRESS. HORTON CATHETER IN PLACE. DRAINING BY GRAVITY. ALL SAFETY MEASURES IN PLACE. BED IN LOWEST POSITION AND LOCKED. SIDE RAILS UP X3, BED ALARM ON. PLACE CALL LIGHT WITH IN REACH. WILL ENDORSE TO MINCEMEAT MAKER RN FOR ZAIRE.
--- NOTE | 2022-01-22 19:28 | NUR ---
LITHOGRAPHED PLATE INSPECTOR OPENING NOTES RECEIVED PATIENT IN BED AWAKE, A/OX 3 WITH EPISODE OF CONFUSION. VERBALLY RESPONSIVE. ON O2 AT 4L/MIN VIA NC, PT TOLERATING WELL. BREATHING EVEN AND UNLABORED. IV ACCESS ON R HAND #20G AND R WRIST 24G INTACT AND PATENT AND FLUSHING WELL. NO S/S OF INFILTRATIONS. NO S/SX OF ACUTE DISTRESS NOTED. WITH HORTON CATHETER IN PLACE. DRAINING BY GRAVITY. ALL SAFETY MEASURES IN PLACE. BED IN LOWEST POSITION AND LOCKED. SIDE RAILS UP X3, BED ALARM ON. CALL LIGHT WITHIN REACH. WILL CONTINUE TO MONITOR THROUGHOUT THE SHIFT.
[2022-01-22 20:00] VITALS: BP 109/65
--- NOTE | 2022-01-22 22:00 | NUR ---
RN NOTE BS CHECKED AT 204 MG/DL, 6 UNITS OF INSULIN GIVEN PER SLIDING SCALE. WILL CONT TO MONITOR.
[2022-01-22] MEDS: *INSULIN REGULAR(HUMULIN R)HUM 100 UNIT/ML VIAL SQ PRN (23:06)
[2022-01-23] VITALS: BP 87/55
[2022-01-23] MEDS: MIDODRINE HCL (5MG) 5 MG TABLET PO PRN (00:12)
[2022-01-23 04:00] VITALS: BP 119/68
[2022-01-23] MEDS: LACTULOSE 10 G/15 ML UDC (PYXIS) PO SCH ×3 (04:12→20:09)
--- NOTE | 2022-01-23 06:36 | NUR ---
DRUG CLERK CLOSING NOTES PATIENT IN BED AWAKE, A/OX 3 WITH EPISODE OF CONFUSION. VERBALLY RESPONSIVE. ON O2 AT 3L/MIN VIA NC, PT TOLERATING WELL SATING 98%. NO COMPLAINTS OF PAIN AT THIS TIME. IV ACCESS ON R HAND #20G AND R WRIST #24G INTACT AND PATENT. NO S/S OF INFILTRATIONS. NO S/SX OF ACUTE DISTRESS NOTED. WITH HORTON CATHETER IN PLACE. DRAINING BY GRAVITY. ALL SAFETY MEASURES IN PLACE. ALL DUE MEDS GIVEN, KEPT DRY AND CLEAN, BED IN LOWEST POSITION AND LOCKED. SIDE RAILS UP X3, BED ALARM ON. CALL LIGHT WITHIN REACH. WILL ENDORSE TO AM SHIFT NURSE FOR CONTINUITY OF CARE.
[2022-01-23] MEDS: BLOOD SUGAR DIAGNOSTIC 1 EACH STRIP VI SCH ×4 (07:37→22:48)
--- NOTE | 2022-01-23 07:46 | NUR ---
RN OPENING NOTES RECEIVED PATIENT IN BED ALERT VERBALLY RESPONSIVE. ON O2 AT 3/MIN VIA NC, PT TOLERATING WELL, NO SOB NOTED, NOT IN DISTRESS. BREATHING EVEN AND UNLABORED. IV ACCESS ON R HAND #20G AND R WRIST 24G INTACT AND PATENT AND FLUSHING WELL. NO S/S OF INFILTRATIONS. WITH HORTON CATHETER IN PLACE. DRAINING BY GRAVITY. ON TELE MONITORING WITH READING OF SR HR=65. ALL SAFETY MEASURES IN PLACE. BED IN LOWEST POSITION AND LOCKED. SIDE RAILS UP X3, BED ALARM ON. CALL LIGHT WITHIN REACH. WILL CONTINUE TO MONITOR.
[2022-01-23 08:00] VITALS: BP 125/79
[2022-01-23] MEDS: PROSOURCE / PROSTAT (PYXIS) 30 ML UDC GT SCH (08:04)
[2022-01-23] MEDS: DEXAMETHASONE SOD PHOSPHATE 10 MG/ML VIAL IV SCH (08:05)
[2022-01-23] MEDS: FERROUS SULFATE (325 MG) 325 MG/TAB TABLET PO SCH ×3 (08:05→16:50)
[2022-01-23] MEDS: GLUCERNA SHAKE 237 ML CAN PO SCH ×2 (08:05→16:48)
[2022-01-23] MEDS: FLUOXETINE HCL 20 MG CAPSULE PO SCH (08:05)
[2022-01-23] MEDS: PANTOPRAZOLE 40 MG TABLET.DR PO SCH (08:05)
[2022-01-23] MEDS: THERAHONEY GEL 1.5 OZ TUBE TP SCH (08:07)
[2022-01-23] MEDS: CLOTRIMAZOLE/BETAMETASONE DIPROPIONATE 15 GM TUBE TP SCH ×2 (08:07→17:04)
[2022-01-23] MEDS ORDERED: FURO-144 PO (10:26)
[2022-01-23] MEDS ORDERED: DEXA4TAB68 PO (10:26)
[2022-01-23] MEDS ORDERED: METH4TAB17 PO (10:26)
[2022-01-23] MEDS: INSULIN REGULAR, HUMAN 100 UNIT/ML 3 ML VIAL SQ PRN ×2 (11:44→17:01)
[2022-01-23 12:00] VITALS: BP 113/65
[2022-01-23 16:00] VITALS: BP 125/75
--- NOTE | 2022-01-23 18:34 | NUR ---
RN CLOSING NOTES PATIENT IN BED ALERT AND VERBALLY RESPONSIVE. ON O2 AT 3L/MIN VIA NC SATURATING @95 %, NO SOB NOTED, NOT IN RESPIRATORY DISTRESS. NO COMPLAINTS OF PAIN AT THIS TIME. ON TELE MONITORING WITH SR HR=90. WITH R WRIST #24G INTACT AND PATENT, ON SALINE LOCK, FLUSHES WELL. WITH HORTON CATHETER IN PLACE, DRAINING WITH 200ML URINE OUTPUT. ALL SAFETY MEASURES IN PLACE. ALL DUE MEDS GIVEN, KEPT DRY AND CLEAN, BED IN LOWEST POSITION AND LOCKED. SIDE RAILS UP X3, BED ALARM ON. CALL LIGHT WITHIN REACH. WILL ENDORSE TO SAND SHOVELER NURSE FOR CONTINUITY OF CARE.
[2022-01-23 20:00] VITALS: BP 116/75
--- NOTE | 2022-01-23 20:00 | NUR ---
BOTTOM PRESSER OPENING NOTES RECEIVED PT FOR CONTINUITY OF CARE. PATIENT A/OX1-2 WITH CONFUSSION , IN NO S/SX OF ACUTE DISTRESS AT THIS TIME; CURRENTLY ON 5L OF 02 VIA NC; WITH 02 SAT 93% AT THIS TIME.WITH IV ACCESS RIGHT WRIST g# 24 PATENT, INTACT AND FLUSHING WELL. WITH F/C INTACT AND PATENT DRAINING YELLOWISH URINE OUTPUT ,DUE MEDS GIVEN ORDERED. NO ASE NOTED .WILL ENSURE SAFETY MEASURES WITHIN THE SHIFT. PATIENT BED ALARM IS ON. HEAD OF BED ELEVATED. BED IS LOCKED, IN LOWEST POSITION AND SIDE RAILS UP. CALL LIGHT WITHIN REACH OF THE PATIENT. APPLICABLE ISOLATION PRECAUTIONS IN PLACE. WILL CONTINUE TO MONITOR AND REASSESS FOR ANY CHANGES AND WILL CARRY OUT ANY ONGOING AND ACTIVE MD ORDER.
--- NOTE | 2022-01-23 21:45 | NUR ---
2145 Noted patient with SOB, O2 saturation checked and noted at 88% on 3 liters, repositioned patient, HOB elevated for max oxygenation, and titrated O2 to 5 liters. O2 saturation noted to improve to 94%.
[2022-01-23] MEDS: *INSULIN REGULAR(HUMULIN R)HUM 100 UNIT/ML VIAL SQ PRN (22:47)
--- NOTE | 2022-01-23 22:49 | NUR ---
telephony engineer notes blood sugar at 10pm is 243mg/dl 4 units of regular insulin given per sliding scale.
--- NOTE | 2022-01-23 23:00 | NUR ---
2300 Patient sleeping at this time. No signs of respiratory distress noted. O2 saturation at 95% on 5 liters. Head of bed kept elevated for maximum oxygenation. Kept comfortable. Needs attended.
[2022-01-24] VITALS: BP 95/80
[2022-01-24 04:00] VITALS: BP 95/56
[2022-01-24] MEDS: LACTULOSE 10 G/15 ML UDC (PYXIS) PO SCH (05:47)
--- NOTE | 2022-01-24 06:30 | NUR ---
PRIVATE TUTORS AND TEACHERS NOTES PATIENT REMAINED ON 3LITERS VIA NC, IN NO SIGNS OF ACUTE RESPIRATORY DISTRESS , VITAL SIGNS STABLE AT THIS TIME. REGULAR TURNING AND REPOSITIONING DONE, WOUND CARE AND AM PATIENT CARE RENDERED WILL CONTINUE TO MONITOR AND REASSESS FOR ANY CHANGES THROUGHOUT THE SHIFT.WILL ENDORSE TO RN DAY SHIFT FOR CONTINUITY OF CARE.
--- NOTE | 2022-01-24 07:00 | NUR ---
CHARGE WEIGHER OPENING NOTES RECEIVED PT A/OX3 WITH CONFUSSION , IN NO S/SX OF ACUTE DISTRESS AT THIS TIME; CURRENTLY ON 3L OF 02 VIA NC; WITH 02 SAT 95% AT THIS TIME.WITH IV ACCESS RIGHT WRIST # 24G PATENT, INTACT AND FLUSHING WELL. WITH F/C INTACT AND PATENT DRAINING YELLOWISH URINE OUTPUT .WILL ENSURE SAFETY MEASURES WITHIN THE SHIFT. PATIENT BED ALARM IS ON. HEAD OF BED ELEVATED. BED IS LOCKED, IN LOWEST POSITION AND SIDE RAILS UP. CALL LIGHT WITHIN REACH OF THE PATIENT.
[2022-01-24 08:00] VITALS: BP 122/73
[2022-01-24] MEDS: GLUCERNA SHAKE 237 ML CAN PO SCH (11:27)
[2022-01-24] MEDS: CLOTRIMAZOLE/BETAMETASONE DIPROPIONATE 15 GM TUBE TP SCH (11:27)
[2022-01-24] MEDS: THERAHONEY GEL 1.5 OZ TUBE TP SCH (11:27)
[2022-01-24] MEDS: FERROUS SULFATE (325 MG) 325 MG/TAB TABLET PO SCH (11:35)
[2022-01-24] MEDS: PANTOPRAZOLE 40 MG TABLET.DR PO SCH (11:35)
[2022-01-24] MEDS: DEXAMETHASONE SOD PHOSPHATE 10 MG/ML VIAL IV SCH (11:35)
[2022-01-24] MEDS: FLUOXETINE HCL 20 MG CAPSULE PO SCH (11:35)
[2022-01-24] MEDS: PROSOURCE / PROSTAT (PYXIS) 30 ML UDC GT SCH (11:36)
[2022-01-24] MEDS: BLOOD SUGAR DIAGNOSTIC 1 EACH STRIP VI SCH (11:36)
[2022-01-24] MEDS: *INSULIN REGULAR(HUMULIN R)HUM 100 UNIT/ML VIAL SQ PRN (11:53)
[2022-01-24] MEDS: HYDROCODONE/APAP 5/325MG TABLET PO PRN (11:54)
[2022-01-24 12:00] VITALS: BP 108/67
--- NOTE | 2022-01-24 12:49 | NUR ---
RN CLOSING NOTE PATIENT DISCHARGED TO [facility], REPORT GIVE TO CHYNA DIAZ. BOOK A RIDE TRANSPORTATION PICKED UP PT VIA GURNEY IN STABLE CONDITION. PT DISCHARGE PACKET AND BELONGINGS GIVEN TO TRANSPORTATION CREW. IV REMOVED, CATHETER TIP INTACT, SO S/S OF BLEEDING. PT ON 3L 02SAT OF 97%. ALL VS STABLE. CHARGE NURSE AWARE OF DISCHARGE.
== END 2022-01-24 13:00 | DRG 137 ==
LOC: ER 11:52 → TRANSITION 14:47 → TELE1 15:38
PROVIDERS: ADMIT Internal Medicine; ATTEND Internal Medicine
PROC: XW033E5 Introduction of Remdesivir Anti-infective into Peripheral Vein, Percutaneous Approach, New Technology Group 5 (ICD-10-PCS; principal; 2022-01-07)
DX: U07.1 COVID-19 (principal); J96.01 Acute respiratory failure with hypoxia; J12.82 Pneumonia due to coronavirus disease 2019; E43 Unspecified severe protein-calorie malnutrition; D68.59 Other primary thrombophilia; L89.156 Pressure-induced deep tissue damage of sacral region; E88.09 Other disorders of plasma-protein metabolism, not elsewhere classified; E66.2 Morbid (severe) obesity with alveolar hypoventilation; L89.159 Pressure ulcer of sacral region, unspecified stage; G90.8 Other disorders of autonomic nervous system; D69.59 Other secondary thrombocytopenia; Z20.822 Contact with and (suspected) exposure to COVID-19; I10 Essential (primary) hypertension; K58.9 Irritable bowel syndrome, unspecified; K74.60 Unspecified cirrhosis of liver; F41.9 Anxiety disorder, unspecified; F32.9 Major depressive disorder, single episode, unspecified; E87.6 Hypokalemia; Z88.6 Allergy status to analgesic agent; Z79.51 Long term (current) use of inhaled steroids; Z79.82 Long term (current) use of aspirin; Z79.4 Long term (current) use of insulin; Z74.09 Other reduced mobility; L30.4 Erythema intertrigo; E86.0 Dehydration; L97.929 Non-pressure chronic ulcer of unspecified part of left lower leg with unspecified severity; L97.919 Non-pressure chronic ulcer of unspecified part of right lower leg with unspecified severity; L97.319 Non-pressure chronic ulcer of right ankle with unspecified severity; E11.621 Type 2 diabetes mellitus with foot ulcer; E11.622 Type 2 diabetes mellitus with other skin ulcer
CPT/HCPCS: 36415; 36600; 71045-TC; 80048-TC; 80076-TC; 82728-TC; 82962-TC; 83735-TC; 83880; 84100-TC; 84484-TC; 85025-TC; 85378-TC; 85610-TC; 85730-TC; 86140-TC; 87081-TC; 94799-TC; 97110-TC; 97112-TC; 97530-TC; A4216; A6253; A6403; C9803; G0378; J0696; J1100; J1650; J1815; J7030; J7050; J7060; Q0162; U0003